=== PATIENT | female | born 1925 | race Caucasian/White ===

== ENCOUNTER 2016-07-18 21:46 | Emergency (ER) | payer MEDICARE ==
[~2016-07-18] VITALS: Ht 160 cm; Wt 60.0 kg
[~2016-07-18 21:46] MED LIST: ASPI-110 PO; DETR4CAP PO; DILT180C PO; DOCU1CAP39 PO; ESCI5TAB PO; FURO20TA PO; LEVO.075 PO; LORA-373 PO; LOVA20TA PO; MELA0.02 PO; METO25TA3 PO; OMEP20TA PO; POTA20TA5 PO; [UNRECOGNIZED DRUG - CODE] PO
[2016-07-18 21:54] VITALS: BP 162/68; PULSE 74; RESP 20; TEMP 97.8; O2SAT 93
[2016-07-18] MEDS ORDERED: MORPHINE SULFATE 4 MG/ML INJ IV PUSH ONE (22:00)
[2016-07-18] MEDS ORDERED: SODIUM CHLORIDE 0.9% FLUSH 5 ML FLUSH IVF PRN (22:00)
[2016-07-18] MEDS ORDERED: ONDANSETRON HCL 4 MG/2 ML VIAL IV PUSH ONE (22:00)
--- NOTE | 2016-07-18 22:07 | PD ---
HPI Chief Complaint: Fall Time Seen by Provider: 22:01 Travel History International Travel<30 days: No Contact w/Intl Traveler<30days: No Traveled to known affect area: No History of Present Illness HPI 89-year-old female brought in by EMS status post fall at a local nursing facility for dementia. Patient states she was in the bathroom brushing her teeth when she felt a loss of balance and she fell backwards. Patient states she did hit her head but denies loss of consciousness. She complains of some neck discomfort, left shoulder pain, and lower back pain. Patient has a history of dementia and hydrocephalus. Patient is somewhat nauseous, but denies headache, dizziness, or vertigo. Patient denies dental injury or throat discomfort. She denies difficulty swallowing. She denies chest pain, or thoracic pain. She denies abdominal pain. She denies lower extremity pain other than in her buttocks and lower back. Right upper extremity is normal. Patient has multiple allergies, please see the list. 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 CATARACT EXTRACT) Genitourinary Surgery: Yes (ATTEMPTED REPAIR URINARY INCONT. 2006) Gynecologic Surgery: Yes (TOTAL ABDOMINAL HYSTERECTOMY) Hysterectomy: Yes Insulin Pump: No Joint Replacement: Yes (RIGHT SHOULDER 2010, RIGHT KNEE 2011) Mastectomy: Yes (RIGHT SIDE) Neurologic Surgery: Yes (VENTRAL-PERITONEAL SHUNT) Pacemaker: No Thoracic Surgery: Yes Other Surgery: Yes (see hx) Social History Alcohol Use: No Tobacco Use: No Substance Use: No Allergies-Medications (Allergen,Severity, Reaction): Coded Allergies: Ambien (Verified Allergy, Severe, HALLUCINATIONS, 07/18/16) Celebrex (Verified Allergy, Severe, 07/18/16) PT STATES IS NOT ALLERGIC -- CAN'T AFFORD Compazine (Verified Allergy, Severe, 07/18/16) Cymbalta (Verified Allergy, Severe, Nausea/Vomiting, 07/18/16) not on allergie list from [facility] Dimetapp (Verified Allergy, Severe, 07/18/16) PT UNSURE IF ALLERGIC Erythromycin (Verified Allergy, Severe, 07/18/16) PT UNSURE IF ALLERGIC Naproxen (Verified Allergy, Severe, ALL NSAIDS UPSET STOMACH, 07/18/16) not on allergie list from [facility] Neurontin (Verified Allergy, Severe, UNSTEADY GAIT, 07/18/16) not on allergie list from [facility] Perphenazine (Verified Allergy, Severe, 07/18/16) not on allergie list from [facility] Prednisone (Verified Allergy, Severe, UPSET STOMACH, 07/18/16) PT DOESN'T REMEMBER IF ALLERGIC Trilafon (Verified Allergy, Severe, NAUSEA & VOMITTING, 07/18/16) EXTRA PYRIMADAL SIDE EFFECTS Vioxx (Verified Allergy, Severe, UPSET STOMACH, 07/18/16) DOESN'T REMEMBER ANY PROBLEMS Percocet (Verified Adverse Reaction, Severe, UPSET STOMACH, 07/18/16) PT DOESN'T REMEMBER REACTION Reported Meds & Prescriptions Reported Meds & Active Scripts Active Potassium Chloride Microencaps 20 Meq Tab 20 Meq PO DAILY 30 Days Furosemide 20 Mg Tab 20 Mg PO BID@,18 30 Days Reported Zofran (Ondansetron HCl) 4 Mg Tab 4 Mg PO Q6HR PRN Tums (Calcium Carbonate (Antacid)) 500 Mg Chew 1,000 Mg CHEW BID PRN Senokot S (Sennosides-Docusate Sodium) 8.6-50 Mg Tab 1 Tab PO DAILY PRN Tylenol (Acetaminophen) 325 Mg Cap 650 Mg PO Q6H PRN Zoloft (Sertraline HCl) 50 Mg Tab 50 Mg PO DAILY Diltiazem HCl ER (Diltiazem HCl Coated Beads) 180 Mg Cap 120 Mg PO DAILY Metoprolol Tartrate 25 Mg Tab 50 Mg PO DAILY Melatonin 3 Mg Tab 3 Mg PO HS Escitalopram (Escitalopram Oxalate) 5 Mg Tab 10 Mg PO DAILY Aspirin 81 (Aspirin) 81 Mg Tabdr 81 Mg PO DAILY Detrol LA (Tolterodine Tartrate) 4 Mg Cap 4 Mg PO HS Lovastatin 20 Mg Tab 20 Mg PO HS Synthroid (Levothyroxine Sodium) 75 Mcg Tab 75 Mcg PO DAILY Review of Systems Except as stated in HPI: all other systems reviewed are Neg General / Constitutional: No: Fever Eyes: No: Visual changes HENT: No: Headaches Cardiovascular: No: Chest Pain or Discomfort Respiratory: No: Shortness of Breath Gastrointestinal: No: Abdominal Pain Genitourinary: No: Dysuria Musculoskeletal: No: Pain Skin: No Rash Neurologic: No: Weakness Psychiatric: No: Depression Endocrine: No: Polydipsia Hematologic/Lymphatic: No: Easy Bruising Physical Exam Narrative GENERAL: Patient is in mild distress. Patient has cervical immobilization in place. She is not on a backboard. SKIN: Warm and dry. Normal color. Somewhat atrophic with moderately poor turgor. HEAD: Atraumatic. Normocephalic. Patient has no point tenderness. Patient has a shunt on the right for her history of hydrocephalus. EYES: Pupils equal and round. No scleral icterus. No injection or drainage. Ocular motions are normal bilaterally. ENT: No nasal bleeding or discharge. Mucous membranes pink and moist. No obvious dental injury. Pharynx is clear. Airway is patent. NECK: Trachea midline. Cervical spine is maintained in immobilization for CT scan. CARDIOVASCULAR: Regular rate and rhythm. No murmurs gallops or rubs appreciated. RESPIRATORY: No accessory muscle use. Clear to auscultation. Breath sounds equal bilaterally. No thoracic wall tenderness with palpation. GASTROINTESTINAL: Abdomen soft, non-tender, nondistended. Hepatic and splenic margins not palpable. MUSCULOSKELETAL: Extremities without clubbing, cyanosis, or edema. No obvious deformities. Patient has pain with palpation generally in the left shoulder without specific point tenderness. There is no obvious deformity or crepitus appreciated. 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 Right upper extremity is normal. Patient complains of pain in the lower lumbar spine and sacrum, without pain with motion of the hips in both flexion and rotation. Patient has normal strength in the lower extremities. Neurovascular exam is normal in all extremities. NEUROLOGICAL: Awake and alert. No obvious cranial nerve deficits. Motor grossly within normal limits. Five out of 5 muscle strength in the arms and legs. Normal speech. PSYCHIATRIC: Appropriate mood and affect; insight and judgment normal. Data Data Last Documented VS Vital Signs Date Time Temp Pulse Resp B/P Pulse Ox O2 Delivery O2 Flow Rate FiO2 07/18/16 22:38 14 94 Nasal Cannula 2 07/18/16 21:54 97.8 74 162/68 Orders Electrocardiogram (07/18/16 21:56) Complete Blood Count With Diff (07/18/16 21:56) Comprehensive Metabolic Panel (07/18/16 21:56) Prothrombin Time / Inr (Pt) (07/18/16 21:56) Act Partial Throm Time (Ptt) (07/18/16 21:56) Pelvis, Ap Only (Routine) (07/18/16 21:56) Iv Access Insert/Monitor (07/18/16 21:56) Oximetry (07/18/16 21:56) Ecg Monitoring (07/18/16 21:56) Sodium Chloride 0.9% Flush (Ns Flush) (07/18/16 22:00) Ct Brain W/O Iv Contrast(Rout) (07/18/16 21:56) Ct Cerv Spine W/O Contrast (07/18/16 21:56) Spine, Lumbar - Ltd (Ap & Lat) (07/18/16 21:56) Shoulder, Limited(2vws) (07/18/16 21:56) Ondansetron Inj (Zofran Inj) (07/18/16 22:00) Morphine Inj (Morphine Inj) (07/18/16 22:00) Labs Laboratory Tests Test 07/18/16 22:05 White Blood Count 10.0 TH/MM3 Red Blood Count 4.35 MIL/MM3 Hemoglobin 13.2 GM/DL Hematocrit 38.9 % Mean Corpuscular Volume 89.5 FL Mean Corpuscular Hemoglobin 30.5 PG Mean Corpuscular Hemoglobin 34.0 % Concent Red Cell Distribution Width 13.5 % Platelet Count 230 TH/MM3 Mean Platelet Volume 9.9 FL Neutrophils (%) (Auto) 61.2 % Lymphocytes (%) (Auto) 26.7 % Monocytes (%) (Auto) 8.4 % Eosinophils (%) (Auto) 2.6 % Basophils (%) (Auto) 1.1 % Neutrophils # (Auto) 6.1 TH/MM3 Lymphocytes # (Auto) 2.7 TH/MM3 Monocytes # (Auto) 0.8 TH/MM3 Eosinophils # (Auto) 0.3 TH/MM3 Basophils # (Auto) 0.1 TH/MM3 CBC Comment DIFF FINAL Differential Comment Prothrombin Time 12.1 SEC Prothromb Time International 1.1 RATIO Ratio Activated Partial 26.0 SEC Thromboplast Time Sodium Level 138 MEQ/L Potassium Level 4.6 MEQ/L Chloride Level 102 MEQ/L Carbon Dioxide Level 27.7 MEQ/L Anion Gap 8 MEQ/L Blood Urea Nitrogen 18 MG/DL Creatinine 0.96 MG/DL Estimat Glomerular Filtration 55 ML/MIN Rate Random Glucose 99 MG/DL Calcium Level 9.3 MG/DL Total Bilirubin 0.3 MG/DL Aspartate Amino Transf 22 U/L (AST/SGOT) Alanine Aminotransferase 24 U/L (ALT/SGPT) Alkaline Phosphatase 75 U/L Total Protein 7.8 GM/DL Albumin 3.6 GM/DL [facility] Medical Decision Making Medical Screen Exam Complete: Yes Emergency Medical Condition: Yes Medical Record Reviewed: Yes Differential Diagnosis Fall due to loss of balance. Head contusion. Cervical neck strain. Possible fracture. Possible intracranial bleed. Left shoulder contusion. Left shoulder fracture. Lumbar strain. Sacral contusion possible fracture. Narrative Course Patient is medically stable at time of exam. IV is in place from EMS. Patient is given 4 mg Zofran [address] of the head and neck is ordered. X-rays of the left shoulder are ordered. X -rays of the pelvis and lumbar spine are ordered. X-rays of the left shoulder are within normal limits per radiologist. X-ray of the lumbar spine shows no acute process per radiologist. X-ray of the pelvis is unremarkable per radiologist. CT of the head is unremarkable for acute process per radiologist. CT of the cervical spine is unremarkable for acute process per radiologist. Cervical collar is removed by myself. Labs are all within normal limits. Patient is discussed with Dr. Nagel. Patient is felt stable to return to her nursing facility. Patient Tylenol for her aches and pains. Patient is to be monitored for any worsening symptoms or return the emergency department as symptoms warrant. Diagnosis Primary Impression: Unwitnessed fall Additional Impressions: Contusion of left shoulder, initial encounter Sacral contusion Qualified Code: S30.0XXA - Sacral contusion, initial encounter Sprain of cervical neck Qualified Code: S13.9XXA - Sprain of cervical neck, initial encounter Referrals: Primary Care Physician Patient Instructions: Fall Prevention for Older Adults (ED), General Instructions Additional Instructions: Patient is felt stable to return to her nursing facility. Patient Tylenol for her aches and pains. Patient is to be monitored for any worsening symptoms or return the emergency department as symptoms warrant. Med/Other Pt SpecificInfo: No Change to Meds Disposition: 01 DISCHARGE HOME Condition: Stable Octavio Trinh Jul 18, 2016 22:07
[2016-07-18 22:17] LABS: AUTOMATED NEUTROPHIL # 6.1 TH/MM3 (1.8-7.7); BASOPHIL # 0.1 TH/MM3 (0-0.2); BASOPHIL % 1.1 % (0.0-2.0); EOSINOPHIL # 0.3 TH/MM3 (0-0.4); EOSINOPHIL % 2.6 % (0.0-4.0); HEMATOCRIT 38.9 % (35.0-46.0); HEMO FLAGS DIFF FINAL; LYMPH % 26.7 % (9.0-44.0); LYMPHOCYTE # 2.7 TH/MM3 (1.0-4.8); MEAN CELL VOLUME 89.5 FL (80.0-100.0); MEAN CORPUSCULAR HEMOGLOBIN 30.5 PG (27.0-34.0); MONO % 8.4 % (0.0-8.0); NEUT % 61.2 % (16.0-70.0); PLATELET COUNT 230 TH/MM3 (150-450); RED BLOOD COUNT 4.35 MIL/MM3 (4.00-5.30); RED CELL DISTRIBUTION WIDTH 13.5 % (11.6-17.2)
--- NOTE | 2016-07-18 22:25 | RADRPT ---
EXAM DATE/TIME: 07/18/2016 22:09 [facility] COMPARISON: No previous studies available for comparison. INDICATIONS : Evaluate pelvis for trauma, fell MEDICAL HISTORY : None. SURGICAL HISTORY : None. ENCOUNTER: Initial ACUITY: 1 day PAIN SCORE: 0/10 LOCATION: Pelvis FINDINGS: A single frontal view of the pelvis demonstrates no evidence of fracture. The bony pelvic ring is in tact. Bony mineralization is normal. The soft tissues are intact. CONCLUSION: Intact pelvis. Jeffery Irvin MD on July 18, 2016 at 22:23 Board Certified Radiologist. This report was verified electronically.
--- NOTE | 2016-07-18 22:27 | RADRPT ---
EXAM DATE/TIME: 07/18/2016 22:10 [facility] COMPARISON: CT ABDOMEN & PELVIS W/O CONTRAST, July 14, 2014, 20:35. INDICATIONS : Back pain, fell MEDICAL HISTORY : None. SURGICAL HISTORY : None. ENCOUNTER: Initial ACUITY: 1 day PAIN SCORE: 6/10 LOCATION: Lumbar spine FINDINGS: Mild concavity of L2 vertebral body appears similar to the prior CT. A few millimeters of degenerativ e anterolisthesis at L3/L4 and L4/L5 is also unchanged. No fracture or acute appearing malalignment. CONCLUSION: Intact lumbar spine. No acute subluxation. Jeffery Irvin MD on July 18, 2016 at 22:24 Board Certified Radiologist. This report was verified electronically.
[2016-07-18] MEDS ORDERED: ACET1CAP18 PO (22:28)
[2016-07-18] MEDS ORDERED: TUMS500C CHEW (22:28)
[2016-07-18] MEDS ORDERED: SENN1TAB17 PO (22:28)
[2016-07-18] MEDS ORDERED: ZOFR4TAB PO (22:28)
[2016-07-18] MEDS ORDERED: ZOLO50TA PO (22:28)
--- NOTE | 2016-07-18 22:28 | RADRPT ---
EXAM DATE/TIME: 07/18/2016 22:10 [facility] COMPARISON: No previous studies available for comparison. INDICATIONS : Left shoulder pain, fell MEDICAL HISTORY : None. SURGICAL HISTORY : None. ENCOUNTER: Initial ACUITY: 1 day PAIN SCORE: 3/10 LOCATION: Left Shoulder FINDINGS: Two view examination of the left shoulder demonstrates no evidence of fracture or dislocation. The g lenohumeral and acromioclavicular joints are maintained. Bony mineralization is normal. 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 CONCLUSION: Intact left shoulder. Jeffery Irvin MD on July 18, 2016 at 22:26 Board Certified Radiologist. This report was verified electronically.
[2016-07-18 22:31] LABS: INTERNATIONAL NORMALIZED RATIO 1.1 RATIO; PROTHROMBIN TIME - PATIENT 12.1 SEC (9.8-11.6)
--- NOTE | 2016-07-18 22:33 | RADRPT ---
EXAM DATE/TIME: 07/18/2016 22:18 [facility] COMPARISON: CT BRAIN W/O CONTRAST, November 17, 2014, 2:50. INDICATIONS : Trauma. Fall. RADIATION DOSE: 58.18 CTDIvol (mGy) MEDICAL HISTORY : Cardiovascular disease. Hypertension. Hydrocephalus SURGICAL HISTORY : Appendectomy. Cholecystectomy.Hysterectomy. ENCOUNTER: Initial ACUITY: 1 day PAIN SCALE: Non-responsive LOCATION: cranial TECHNIQUE: Multiple contiguous axial images were obtained of the head. Using automated exposure control and adj ustment of the mA and/or kV according to patient size, radiation dose was kept as low as reasonably a chievable to obtain optimal diagnostic quality images. FINDINGS: CEREBRUM: Mild ventriculomegaly unchanged. Patient remains shunted.. No evidence of midline shift, mass lesion , hemorrhage or acute infarction. No extra-axial fluid collections are seen. Chronic white matter lo w attenuation again noted. POSTERIOR FOSSA: The cerebellum and brainstem are intact. The 4th ventricle is midline. The cerebellopontine angle i s unremarkable. EXTRACRANIAL: The visualized portion of the orbits is intact. SKULL: The calvaria is intact. No evidence of skull fracture. CONCLUSION: No bleed or other acute intracranial abnormality. Chronic white matter changes and mild ventriculomeg dawit unchanged. Jeffery Irvin MD on July 18, 2016 at 22:30 Board Certified Radiologist. This report was verified electronically.
[2016-07-18 22:38] VITALS: RESP 14; O2SAT 94
--- NOTE | 2016-07-18 22:38 | RADRPT ---
EXAM DATE/TIME: 07/18/2016 22:18 [facility] COMPARISON: CT BRAIN W/O CONTRAST, November 17, 2014, 2:50. CT CERVICAL SPINE W/O CONTRAST, November 17, 2014, 2:50. INDICATIONS : Trauma. Fall. RADIATION DOSE: 16.69 CTDIvol (mGy) MEDICAL HISTORY : Cardiovascular disease. Hypertension. Hydrocephalus SURGICAL HISTORY : Appendectomy. Cholecystectomy.Hysterectomy.[employer] Shunt ENCOUNTER: Initial ACUITY: 1 day PAIN SCALE: Non-responsive LOCATION: neck TECHNIQUE: Volumetric scanning of the cervical spine was performed. Multiplanar reconstructions in the sagittal, coronal and oblique axial planes were performed. Using automated exposure control and adjustment o f the mA and/or kV according to patient size, radiation dose was kept as low as reasonably achievable to obtain optimal diagnostic quality images. FINDINGS: There are several millimeters of degenerative anterolisthesis at C4/C5, unchanged. No fracture or acu te appearing malalignment. Vertebral bodies have normal height. Severe disc space narrowing with uncovertebral and facet osteoarthritis again seen at C5/C6 and C6 on C7. Other disc heights are within normal limits but there is moderate facet osteoarthritis essential ly throughout. CONCLUSION: No fracture or subluxation of the cervical spine. Multilevel degenerative changes similar to the prio r CT. Jeffery Irvin MD on July 18, 2016 at 22:34 Board Certified Radiologist. This report was verified electronically.
[2016-07-18 22:41] LABS: ANION GAP 8 MEQ/L (5-15); BICARBONATE 27.7 MEQ/L (21.0-32.0); BLOOD UREA NITROGEN 18 MG/DL (7-18); CHLORIDE 102 MEQ/L (98-107); GLOMERULAR FILTRATION RATE 55 ML/MIN (>89); POTASSIUM 4.6 MEQ/L (3.5-5.1); SODIUM (NA) 138 MEQ/L (136-145)
[2016-07-18 22:45] LABS: ALKALINE PHOSPHATASE 75 U/L (45-117); ALT (GPT) 24 U/L (10-53); AST (GOT) 22 U/L (15-37); TOTAL BILIRUBIN ADULT 0.3 MG/DL (0.2-1.0)
[2016-07-19] VITALS: BP 113/54; PULSE 58; RESP 16; O2SAT 93
[2016-07-19 02:00] VITALS: BP 126/59; PULSE 60; RESP 14; O2SAT 94
[2016-07-19 06:39] VITALS: BP 124/58; PULSE 65; RESP 20; O2SAT 96
--- NOTE | 2016-07-19 10:32 | EKG ---
Date Performed: 07/18/2016 Time Performed: 22:36:27 PTAGE: 89 years EKG: Sinus rhythm WITH FIRST DEGREE AV BLOCK WITH OCCASIONAL VENTRICULAR PREMATURE COMPLEXES LOW QRS VOLTAGE IN PRECOR DIAL LEADS SEPTAL MYOCARDIAL INFARCTION NONSPECIFIC LATERAL ST/T CHANGES ABNORMAL ECG PREVIOUS TRACING : 03/11/2016 13.38 Compared to previous tracing, PVCs are now present. DOCTOR: Chito Hook Interpretating Date/Time 07/19/2016 10:30:28
== END 2016-07-19 08:00 | disposition home or self-care (01) ==
LOC: NEPE 21:46 → NEPA 07-19 08:00
DX: S30.0XXA Contusion of lower back and pelvis, initial encounter (principal); S40.012A Contusion of left shoulder, initial encounter; S13.4XXA Sprain of ligaments of cervical spine, initial encounter; F03.90 Unspecified dementia, unspecified severity, without behavioral disturbance, psychotic disturbance, mood disturbance, and anxiety; I10 Essential (primary) hypertension; W19.XXXA Unspecified fall, initial encounter; Y93.E8 Activity, other personal hygiene; Y92.121 Bathroom in nursing home as the place of occurrence of the external cause
CPT/HCPCS: 70450; 72100; 72125; 72170; 73030; 80053; 85025; 85610; 85730; 93005; 96374; 96375; 99285; J2270; J2405

== ENCOUNTER 2016-08-01 08:32 | Observation (INO) | payer MEDICARE ==
[~2016-08-01] VITALS: Ht 165.1 cm; Wt 64.5 kg
[2016-08-01] VITALS (7 sets, daily range): BP systolic 134–155; BP diastolic 60–91; PULSE 73–85; RESP 16–20; TEMP 98–99.6; O2SAT 91–98
[~2016-08-01 08:32] MED LIST changes: +ACET1CAP18 PO; -DOCU1CAP39 PO; -LORA-373 PO; -OMEP20TA PO; +SENN1TAB17 PO; +TUMS500C CHEW; +ZOFR4TAB PO; +ZOLO50TA PO; -[UNRECOGNIZED DRUG - CODE] PO
[2016-08-01] MEDS ORDERED: SODIUM CHLORIDE 0.9% FLUSH 5 ML FLUSH IVF PRN (08:45)
[2016-08-01] MEDS ORDERED: DEXT 5%-NACL 0.9% 500 ML INJ 500 ML IV ONE (08:45)
--- NOTE | 2016-08-01 09:17 | PD ---
HPI Chief Complaint: General Weakness Time Seen by Provider: 08:41 Travel History International Travel<30 days: No Contact w/Intl Traveler<30days: No Traveled to known affect area: No History of Present Illness HPI 89-year-old female patient currently living in an assisted care facility, with multiple medical issues, presents to the ER today brought in by EMS because she wheeled herself down to the facility office and had initially appeared to have some slurring of the speech and facility thought that maybe she had a left- sided weakness, and they called EMS. When EMS arrived, they state that they did not see any focal neurological deficits. They state that the patient did appear more tired and had complained of urinary symptoms. In the ER, the patient appears disoriented, lethargic, and is not answering many questions. Modifying Factors: None Associated Signs & Symptoms: Altered mental status, general weakness, slurred speech Risk Factors: Elderly PFSH Past Medical History Arthritis: Yes Blood Disorders: No Anxiety: Yes Heart Rhythm Problems: No Cancer: Yes (R BREAST CA, BASAL CELL HEAD AND FOREHEAD) Cardiac Catheterization: No Cardiovascular Problems: Yes (OPEN HEART 1999 @[facility] MITRAL VALVE REPLACEMENT ) High Cholesterol: No Chemotherapy: No Congestive Heart Failure: No Diabetes: No Diminished Hearing: No Endocrine: Yes Genitourinary: Yes (INCONTINENCE) Hepatitis: No Hiatal Hernia: No Hypertension: Yes Immune Disorder: No Implanted Vascular Access Dvce: Yes Musculoskeletal: Yes (ARTHRITIS) 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 CATARACT EXTRACT) Genitourinary Surgery: Yes (ATTEMPTED REPAIR URINARY INCONT. 2006) Gynecologic Surgery: Yes (TOTAL ABDOMINAL HYSTERECTOMY) Hysterectomy: Yes Insulin Pump: No Joint Replacement: Yes (RIGHT SHOULDER 2010, RIGHT KNEE 2011) Mastectomy: Yes (RIGHT SIDE) Neurologic Surgery: Yes (VENTRAL-PERITONEAL SHUNT) Pacemaker: No Thoracic Surgery: Yes Other Surgery: Yes (see hx) Social History Alcohol Use: No Tobacco Use: No Substance Use: No Allergies-Medications (Allergen,Severity, Reaction): Coded Allergies: Ambien (Verified Allergy, Severe, HALLUCINATIONS, 07/18/16) Celebrex (Verified Allergy, Severe, 07/18/16) PT STATES IS NOT ALLERGIC -- CAN'T AFFORD Compazine (Verified Allergy, Severe, 07/18/16) Cymbalta (Verified Allergy, Severe, Nausea/Vomiting, 07/18/16) not on allergie list from [facility] Dimetapp (Verified Allergy, Severe, 07/18/16) PT UNSURE IF ALLERGIC Erythromycin (Verified Allergy, Severe, 07/18/16) PT UNSURE IF ALLERGIC Naproxen (Verified Allergy, Severe, ALL NSAIDS UPSET STOMACH, 07/18/16) not on allergie list from [facility] Neurontin (Verified Allergy, Severe, UNSTEADY GAIT, 07/18/16) not on allergie list from [facility] Perphenazine (Verified Allergy, Severe, 07/18/16) not on allergie list from [facility] Prednisone (Verified Allergy, Severe, UPSET STOMACH, 07/18/16) PT DOESN'T REMEMBER IF ALLERGIC Trilafon (Verified Allergy, Severe, NAUSEA & VOMITTING, 07/18/16) EXTRA PYRIMADAL SIDE EFFECTS Vioxx (Verified Allergy, Severe, UPSET STOMACH, 07/18/16) DOESN'T REMEMBER ANY PROBLEMS Percocet (Verified Adverse Reaction, Severe, UPSET STOMACH, 07/18/16) PT DOESN'T REMEMBER REACTION Reported Meds & Prescriptions Reported Meds & Active Scripts Active Potassium Chloride Microencaps 20 Meq Tab 20 Meq PO DAILY 30 Days Furosemide 20 Mg Tab 20 Mg PO BID@,18 30 Days Reported Zofran (Ondansetron HCl) 4 Mg Tab 4 Mg PO Q6HR PRN Tums (Calcium Carbonate (Antacid)) 500 Mg Chew 1,000 Mg CHEW BID PRN Senokot S (Sennosides-Docusate Sodium) 8.6-50 Mg Tab 1 Tab PO DAILY PRN Tylenol (Acetaminophen) 325 Mg Cap 650 Mg PO Q6H PRN Zoloft (Sertraline HCl) 50 Mg Tab 50 Mg PO DAILY Diltiazem HCl ER (Diltiazem HCl Coated Beads) 180 Mg Cap 120 Mg PO DAILY Metoprolol Tartrate 25 Mg Tab 50 Mg PO DAILY Melatonin 3 Mg Tab 3 Mg PO HS Escitalopram (Escitalopram Oxalate) 5 Mg Tab 10 Mg PO DAILY Aspirin 81 (Aspirin) 81 Mg Tabdr 81 Mg PO DAILY Detrol LA (Tolterodine Tartrate) 4 Mg Cap 4 Mg PO HS Lovastatin 20 Mg Tab 20 Mg PO HS Synthroid (Levothyroxine Sodium) 75 Mcg Tab 75 Mcg PO DAILY Review of Systems ROS Limitations: Altered Mental Status Physical Exam Narrative GENERAL: Well-nourished, well-developed elderly white female patient who is lethargic, not answering questions, awake, follows some commands and not others. SKIN: Warm and dry. HEAD: Atraumatic. Normocephalic. EYES: Pupils equal and round. No scleral icterus. No injection or drainage. Pupils are equal, round, small, poorly reactive to light bilaterally. ENT: No nasal bleeding or discharge. Mucous membranes pink and moist. NECK: Trachea midline. No JVD. CARDIOVASCULAR: Regular rate and rhythm. No murmur appreciated. RESPIRATORY: No accessory muscle use. Clear to auscultation. Breath sounds equal bilaterally. GASTROINTESTINAL: Abdomen soft, mild suprapubic tenderness without guarding or rebound, nondistended. Hepatic and splenic margins not palpable. MUSCULOSKELETAL: No obvious deformities. No clubbing. No cyanosis. No edema. NEUROLOGICAL: Awake and lethargic. Not following commands, slurred speech. PSYCHIATRIC: Flat affect; this oriented. Data Data Last Documented VS Vital Signs Date Time Temp Pulse Resp B/P Pulse Ox O2 Delivery O2 Flow Rate FiO2 08/01/16 09:19 98 Room Air 08/01/16 08:53 98.0 73 19 134/60 Orders Electrocardiogram (08/01/16 08:41) Ammonia (08/01/16 08:41) Complete Blood Count With Diff (08/01/16 08:41) Comprehensive Metabolic Panel (08/01/16 08:41) Prothrombin Time / Inr (Pt) (08/01/16 08:41) Act Partial Throm Time (Ptt) (08/01/16 08:41) Troponin I (08/01/16 08:41) Thyroid Stimulating Hormone (08/01/16 08:41) Lactic Acid Sepsis Protocol (08/01/16 08:41) Urinalysis - C+S If Indicated (08/01/16 08:41) Blood Culture (08/01/16 08:41) Chest, Single Ap (08/01/16 08:41) Ct Brain W/O Iv Contrast(Rout) (08/01/16 08:41) Blood Glucose (08/01/16 08:41) Ecg Monitoring (08/01/16 08:41) Iv Access Insert/Monitor (08/01/16 08:41) Cath For Specimen (08/01/16 08:41) Oximetry (08/01/16 08:41) Sodium Chloride 0.9% Flush (Ns Flush) (08/01/16 08:45) Drug Screen, Random Urine (08/01/16 08:41) Alcohol (Ethanol) (08/01/16 08:41) Salicylates (Aspirin) (08/01/16 08:41) Dext 5%-Nacl 0.9% 500 Ml Inj (D5w-Ns 500 (08/01/16 08:45) Urine Culture (08/01/16 09:10) Cefepime Inj (Maxipime Inj) (08/01/16 09:57) Sodium Chlorid 0.9% 500 Ml Inj (Ns 500 M (08/01/16 10:15) Electrocardiogram (08/01/16 11:24) Labs Laboratory Tests Test 08/01/16 09:10 White Blood Count 13.0 TH/MM3 Red Blood Count 4.76 MIL/MM3 Hemoglobin 14.2 GM/DL Hematocrit 42.4 % Mean Corpuscular Volume 89.1 FL Mean Corpuscular Hemoglobin 29.8 PG Mean Corpuscular Hemoglobin 33.5 % Concent Red Cell Distribution Width 13.1 % Platelet Count 312 TH/MM3 Mean Platelet Volume 9.8 FL Neutrophils (%) (Auto) 75.3 % Lymphocytes (%) (Auto) 14.4 % Monocytes (%) (Auto) 9.1 % Eosinophils (%) (Auto) 0.8 % Basophils (%) (Auto) 0.4 % Neutrophils # (Auto) 9.8 TH/MM3 Lymphocytes # (Auto) 1.9 TH/MM3 Monocytes # (Auto) 1.2 TH/MM3 Eosinophils # (Auto) 0.1 TH/MM3 Basophils # (Auto) 0.1 TH/MM3 CBC Comment DIFF FINAL Differential Comment Prothrombin Time 12.1 SEC Prothromb Time International 1.1 RATIO Ratio Activated Partial 28.5 SEC Thromboplast Time Urine Color YELLOW Urine Turbidity CLOUDY Urine pH 7.5 Urine Specific [place] 1.023 Urine Protein 30 mg/dL Urine Glucose (UA) NEG mg/dL Urine Ketones 80 mg/dL Urine Occult Blood NEG Urine Nitrite NEG Urine Bilirubin NEG Urine Urobilinogen 4.0 MG/DL Urine Leukocyte Esterase SMALL Urine RBC 1 /hpf Urine WBC 14 /hpf Urine Squamous Epithelial 1 /hpf Cells Urine Amorphous Sediment FEW Urine Bacteria MOD /hpf Urine Mucus FEW /lpf Microscopic Urinalysis Comment CATH-CULTURE IND Sodium Level 136 MEQ/L Potassium Level 3.8 MEQ/L Chloride Level 98 MEQ/L Carbon Dioxide Level 25.5 MEQ/L Anion Gap 13 MEQ/L Blood Urea Nitrogen 18 MG/DL Creatinine 0.88 MG/DL Estimat Glomerular Filtration 61 ML/MIN Rate Random Glucose 73 MG/DL Lactic Acid Level 1.4 mmol/L Calcium Level 9.4 MG/DL Total Bilirubin 0.7 MG/DL Aspartate Amino Transf 22 U/L (AST/SGOT) Alanine Aminotransferase 24 U/L (ALT/SGPT) Alkaline Phosphatase 113 U/L Ammonia LESS THAN 10 MCMOL/L Troponin I LESS THAN 0.02 NG/ML Total Protein 8.0 GM/DL Albumin 3.3 GM/DL Thyroid Stimulating Hormone 1.220 uIU/ML 3rd Gen Salicylates Level LESS THAN 1.7 MG/DL Urine Opiates Screen NEG Urine Barbiturates Screen NEG Urine Amphetamines Screen NEG Urine Benzodiazepines Screen NEG Urine Cocaine Screen NEG Urine Cannabinoids Screen NEG Ethyl Alcohol Level LESS THAN 3 MG/DL MDM Medical Decision Making Medical Screen Exam Complete: Yes Emergency Medical Condition: Yes Medical Record Reviewed: Yes Interpretation(s) Laboratory Tests Test 08/01/16 09:10 White Blood Count 13.0 TH/MM3 (4.0-11.0) Neutrophils (%) (Auto) 75.3 % (16.0-70.0) Monocytes (%) (Auto) 9.1 % (0.0-8.0) Neutrophils # (Auto) 9.8 TH/MM3 (1.8-7.7) Monocytes # (Auto) 1.2 TH/MM3 (0-0.9) Prothrombin Time 12.1 SEC (9.8-11.6) Urine Turbidity CLOUDY (CLEAR) Urine Protein 30 mg/dL (NEG-TRACE) Urine Ketones 80 mg/dL (NEG) Urine Urobilinogen 4.0 MG/DL (LESS THAN 2.0) Urine Leukocyte Esterase SMALL (NEG) Urine WBC 14 /hpf (0-5) Urine Bacteria MOD /hpf (NONE) Urine Mucus FEW /lpf (OCC) Estimat Glomerular Filtration 61 ML/MIN (>89) Rate Random Glucose 73 MG/DL (74-106) Ammonia LESS THAN 10 MCMOL/L (11-32) Troponin I LESS THAN 0.02 NG/ML (0.02-0.05) Albumin 3.3 GM/DL (3.4-5.0) Salicylates Level LESS THAN 1.7 MG/DL (2.8-20.0) Last 24 hours Impressions Chest X-Ray 08/01/16 0841 Signed Impressions: Service Date/Time: Monday, August 01, 2016 08:57 - CONCLUSION: Minimal parenchymal opacity at the lateral left base. Jeffery Ibarra MD Differential Diagnosis Altered mental statusTIA/CVA versus sepsis versus metabolic issues versus dehydration Narrative Course Lab work shows significant leukocytosis and UTI which I still suspect may be causing patient's disorientation. I do not see focal symptoms but patient is disoriented and it is difficult to do a complete neuro exam on her. Her CAT scan shows that she has a ASSOCIATE RELATIONS SPECIALIST shunt. IV access are initiated after cultures are drawn and IV fluids is given in the ER. My plan would be to admit the patient for further evaluation treatment. The case was discussed with Dr. Ratliff for admission. Sepsis Criteria SIRS Criteria (2 or more): WBC > 04482, < 4000 or > 10% bands Sepsis Criteria (SIRS+source): Infect source susp/known Diagnosis Primary Impression: Altered mental state Additional Impression: UTI (urinary tract infection) Admitting Information Admitting Physician Requests: Admit Deann Olea MD Aug 01, 2016 09:17
[2016-08-01 09:34] LABS: AUTOMATED NEUTROPHIL # 9.8 TH/MM3 (1.8-7.7); BASOPHIL # 0.1 TH/MM3 (0-0.2); BASOPHIL % 0.4 % (0.0-2.0); EOSINOPHIL # 0.1 TH/MM3 (0-0.4); EOSINOPHIL % 0.8 % (0.0-4.0); HEMATOCRIT 42.4 % (35.0-46.0); HEMO FLAGS DIFF FINAL; LYMPH % 14.4 % (9.0-44.0); LYMPHOCYTE # 1.9 TH/MM3 (1.0-4.8); MEAN CELL VOLUME 89.1 FL (80.0-100.0); MEAN CORPUSCULAR HEMOGLOBIN 29.8 PG (27.0-34.0); MEAN CORPUSCULAR HGB CONC 33.5 % (32.0-36.0); MONO % 9.1 % (0.0-8.0); NEUT % 75.3 % (16.0-70.0); PLATELET COUNT 312 TH/MM3 (150-450); RED BLOOD COUNT 4.76 MIL/MM3 (4.00-5.30); RED CELL DISTRIBUTION WIDTH 13.1 % (11.6-17.2)
--- NOTE | 2016-08-01 09:39 | RADRPT ---
EXAM DATE/TIME: 08/01/2016 08:57 [facility] COMPARISON: CHEST PA & LAT, March 12, 2016, 8:20. INDICATIONS : Syncope, brought in by evac from a long-term with no knowledge of history MEDICAL HISTORY : None. SURGICAL HISTORY : cabg ENCOUNTER: Initial ACUITY: 1 day PAIN SCORE: Non-responsive. LOCATION: Bilateral chest FINDINGS: Minimal parenchymal opacity at the lateral left lung base. Right lung is focally clear. No effusion s uspected. Cardiomediastinal contours are stable and satisfactory. Prosthetic aortic valve is noted. S ternotomy wires are present. There's been previous right shoulder arthroplasty. CONCLUSION: Minimal parenchymal opacity at the lateral left base. Jeffery Ibarra MD on August 01, 2016 at 9:23 Board Certified Radiologist. This report was verified electronically.
[2016-08-01 09:45] LABS: APTT (PATIENT) 28.5 SEC (24.3-30.1); INTERNATIONAL NORMALIZED RATIO 1.1 RATIO; PROTHROMBIN TIME - PATIENT 12.1 SEC (9.8-11.6)
[2016-08-01 09:46] LABS: BACTERIA, URINE MOD /hpf; BLOOD, URINE NEG (NEG); COMMENT (UR) CATH-CULTURE IND; CULTURE IF INDICATED CATH CULTURE IND; GLUCOSE,URINE NEG (NEG); KETONE, URINE 80 mg/dL (NEG); MUCUS URINE FEW /lpf (OCC); NITRITE,URINE NEG (NEG); PH, URINE 7.5 (5.0-8.5); SQUAMOUS EPITHELIAL CELL URINE 1 /hpf (0-5); URINE COLOR YELLOW (YELLW/STRAW)
[2016-08-01 09:48] LABS: ANION GAP 13 MEQ/L (5-15); AST (GOT) 22 U/L (15-37); BICARBONATE 25.5 MEQ/L (21.0-32.0); BLOOD UREA NITROGEN 18 MG/DL (7-18); CHLORIDE 98 MEQ/L (98-107); GLOMERULAR FILTRATION RATE 61 ML/MIN (>89); POTASSIUM 3.8 MEQ/L (3.5-5.1); SODIUM (NA) 136 MEQ/L (136-145)
[2016-08-01] MEDS ORDERED: CEFEPIME INJ 2,000 MG in SODIUM CHLORIDE 0.9% INJ 100 ML IV STA (09:57)
[2016-08-01 09:59] LABS: ALKALINE PHOSPHATASE 113 U/L (45-117); ALT (GPT) 24 U/L (10-53); TOTAL BILIRUBIN ADULT 0.7 MG/DL (0.2-1.0)
[2016-08-01 10:02] LABS: AMPHETAMINE, URINE NEG (NEG); BARBITURATES, URINE NEG (NEG); COCAINE, URINE NEG (NEG)
[2016-08-01] MEDS ORDERED: SODIUM CHLORID 0.9% 500 ML INJ 500 ML IV ONE (10:15)
--- NOTE | 2016-08-01 12:23 | RADRPT ---
EXAM DATE/TIME: 08/01/2016 10:12 [facility] COMPARISON: CT BRAIN W/O CONTRAST, July 18, 2016, 22:18. INDICATIONS: Altered mental status. RADIATION DOSE: 41.56 CTDIvol (mGy) MEDICAL HISTORY: Carcinoma, breast. Hydrocephalus SURGICAL HISTORY: Hysterectomy. Shunt placement ENCOUNTER: Initial ACUITY: 1 day PAIN SCALE: Non-responsive LOCATION: Bilateral head TECHNIQUE: Multiple contiguous axial images were obtained of the head. Using automated exposure control and adj ustment of the mA and/or kV according to patient size, radiation dose was kept as low as reasonably a chievable to obtain optimal diagnostic quality images. FINDINGS: Ventriculomegaly is again noted at unchanged compared to the previous examination in July 2016. A v entriculostomy shunt is stable in position with its tip in the left lateral ventricle. Chronic small vessel ischemic changes are noted within the periventricular and subcortical white matter bilaterall y (right slightly worse than left) but unchanged. There is no acute hemorrhage, midline shift or ext raaxial fluid collections. CONCLUSION: 1. Stable ventriculomegaly. 2. Stable chronic periventricular and subcortical white matter small vessel ischemic changes (right slightly worse than left). 3. No acute infarct, acute hemorrhage, midline shift or extraaxial fluid collections. Chadwick Zhong MD on August 01, 2016 at 10:57 Board Certified Radiologist. This report was verified electronically.
[2016-08-01] MEDS ORDERED: cefTRIAXone INJ 1,000 MG in SODIUM CHLORIDE 0.9% INJ 100 ML IV SCH (13:45)
[2016-08-01] MEDS ORDERED: SENN8.6C PO (13:47)
[2016-08-01] MEDS ORDERED: SACC1CAP3 PO (13:47)
[2016-08-01] MEDS ORDERED: ULTR50TA5 PO (13:47)
--- NOTE | 2016-08-01 14:20 | EKG ---
Date Performed: 08/01/2016 Time Performed: 08:56:21 PTAGE: 89 years EKG: SUPRAVENTRICULAR RHYTHM NONSPECIFIC ST & T-WAVE ABNORMALITY BORDERLINE ECG NO PREVIOUS TRACING Compared to prior tracing no significant change DOCTOR: Adam Villarreal Interpretating Date/Time 08/03/2016 06:59:45
--- NOTE | 2016-08-01 14:27 | HHI.HP ---
HPI [facility] Primary Care Physician Daniela Guzman MD Admission Diagnosis altered mental status/UTI/sepsis Chief Complaint: AMS Travel History International Travel<30 Days: No Contact w/Intl Traveler <30 Da: No Traveled to Known Affected Are: No History of Present Illness Ms. 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 Per the ED notes, the pt wheeled herself down to the office at the [facility] and had initially appeared to have some slurring of the speech and facility thought that maybe she had a left- sided weakness, and they called EMS. When EMS arrived, they stated that they did not have any obvious focal neurological deficits. They state that the patient did appear more tired and had complained of urinary symptoms. In the ED , the patient is lying on the stretcher with eyes closed and refused to follow commands. She would occasionally answer some yes or no questions. She states that she has some dysuria for a few days. No reported nausea/vomiting, chest pain, SOB, palpitations. Her workup in the ED revealed an elevated WBC count with left shift and an abnormal UA, urine culture is pending. Head CT noted stable ventriculomegaly, stable chronic periventricular and subcortical white matter small vessel ischemic changes (right slightly worse than left), but no acute infarct, acute hemorrhage, midline shift or extraaxial fluid collections. Blood cultures were drawn in the ED. Pt was given one dose of Cefepime in the ED. 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 meniscal tears Right shoulder surgery Right mastectomy VPS placement Hx loop diverting colostomy with reversal. Cataract surgery. Lap josiah. Mitral valve replacement with porcine valve in 2001 [facility] Reported Medications -Probiotic (Saccharomyces Boulardii) 250 Mg PO BID -Ultram 50 Mg PO Q6H PRN -Senna 8.6 Mg PO HS -Zofran 4 Mg PO Q6HR PRN -Tums 1,000 Mg CHEW BID PRN -Tylenol 650 Mg PO Q6H PRN -Zoloft 50 Mg PO DAILY -Diltiazem HCl ER 120 Mg PO DAILY -Metoprolol Tartrate 50 Mg PO DAILY -Escitalopram 10 Mg PO DAILY -Aspirin 81 Mg PO DAILY -Synthroid 75 Mcg PO DAILY Allergies: Coded Allergies: Ambien (Verified Allergy, Severe, HALLUCINATIONS, 08/01/16) Celebrex (Verified Allergy, Severe, 08/01/16) PT STATES IS NOT ALLERGIC -- CAN'T AFFORD Compazine (Verified Allergy, Severe, 08/01/16) Cymbalta (Verified Allergy, Severe, Nausea/Vomiting, 08/01/16) not on allergie list from [facility] Dimetapp (Verified Allergy, Severe, 08/01/16) PT UNSURE IF ALLERGIC Erythromycin (Verified Allergy, Severe, 08/01/16) PT UNSURE IF ALLERGIC Naproxen (Verified Allergy, Severe, ALL NSAIDS UPSET STOMACH, 08/01/16) not on allergie list from [facility] Neurontin (Verified Allergy, Severe, UNSTEADY GAIT, 08/01/16) not on allergie list from [facility] Perphenazine (Verified Allergy, Severe, 08/01/16) not on allergie list from [facility] Prednisone (Verified Allergy, Severe, UPSET STOMACH, 08/01/16) PT DOESN'T REMEMBER IF ALLERGIC Trilafon (Verified Allergy, Severe, NAUSEA & VOMITTING, 08/01/16) EXTRA PYRIMADAL SIDE EFFECTS Vioxx (Verified Allergy, Severe, UPSET STOMACH, 08/01/16) DOESN'T REMEMBER ANY PROBLEMS Percocet (Verified Adverse Reaction, Severe, UPSET STOMACH, 08/01/16) PT DOESN'T REMEMBER REACTION Family History Mother with hx of Parkinson disease/dementia Brother with hx of prostate cancer Father with hx of psoriasis Social History Denies any alcohol, tobacco or illicit drug use Pt resides at [facility] Physical Exam Vital Signs Vital Signs Date Time Temp Pulse Resp B/P Pulse Ox O2 Delivery O2 Flow Rate FiO2 08/01/16 09:19 98 Room Air 08/01/16 08:53 98.0 73 19 134/60 98 Physical Exam GENERAL: Thin elderly female in NAD, poor historian SKIN: No rashes, ecchymoses or lesions. Cool and dry. HEENT: Atraumatic. Normocephalic. No temporal or scalp tenderness. No scleral icterus. Airway patent. NECK: Trachea midline, supple, nontender. CARDIO: Regular RESP: CTA bilaterally. No wheezes, rales, or rhonchi. ABD: +BS, soft, mildly distended with suprapubic tenderness. EXT: Extremities without clubbing, cyanosis, or edema. NEURO: Awake but keeps eyes closed and refuses to follow commands. Normal speech. Laboratory Laboratory Tests Test 08/01/16 09:10 White Blood Count 13.0 Red Blood Count 4.76 Hemoglobin 14.2 Hematocrit 42.4 Mean Corpuscular Volume 89.1 Mean Corpuscular Hemoglobin 29.8 Mean Corpuscular Hemoglobin 33.5 Concent Red Cell Distribution Width 13.1 Platelet Count 312 Mean Platelet Volume 9.8 Neutrophils (%) (Auto) 75.3 Lymphocytes (%) (Auto) 14.4 Monocytes (%) (Auto) 9.1 Eosinophils (%) (Auto) 0.8 Basophils (%) (Auto) 0.4 Neutrophils # (Auto) 9.8 Lymphocytes # (Auto) 1.9 Monocytes # (Auto) 1.2 Eosinophils # (Auto) 0.1 Basophils # (Auto) 0.1 CBC Comment DIFF FINAL Differential Comment Prothrombin Time 12.1 Prothromb Time International 1.1 Ratio Activated Partial 28.5 Thromboplast Time Urine Color YELLOW Urine Turbidity CLOUDY Urine pH 7.5 Urine Specific [place] 1.023 Urine Protein 30 Urine Glucose (UA) NEG Urine Ketones 80 Urine Occult Blood NEG Urine Nitrite NEG Urine Bilirubin NEG Urine Urobilinogen 4.0 Urine Leukocyte Esterase SMALL Urine RBC 1 Urine WBC 14 Urine Squamous Epithelial 1 Cells Urine Amorphous Sediment FEW Urine Bacteria MOD Urine Mucus FEW Microscopic Urinalysis Comment CATH-CULTURE IND Sodium Level 136 Potassium Level 3.8 Chloride Level 98 Carbon Dioxide Level 25.5 Anion Gap 13 Blood Urea Nitrogen 18 Creatinine 0.88 Estimat Glomerular Filtration 61 Rate Random Glucose 73 Lactic Acid Level 1.4 Calcium Level 9.4 Total Bilirubin 0.7 Aspartate Amino Transf 22 (AST/SGOT) Alanine Aminotransferase 24 (ALT/SGPT) Alkaline Phosphatase 113 Ammonia LESS THAN 10 Troponin I LESS THAN 0.02 Total Protein 8.0 Albumin 3.3 Thyroid Stimulating Hormone 1.220 3rd Gen Salicylates Level LESS THAN 1.7 Urine Opiates Screen NEG Urine Barbiturates Screen NEG Urine Amphetamines Screen NEG Urine Benzodiazepines Screen NEG Urine Cocaine Screen NEG Urine Cannabinoids Screen NEG Ethyl Alcohol Level LESS THAN 3 Date/Time Procedure Status Source Growth 08/01/16 09:10 Urine Culture Received Urine Catheterized Urine Pending 08/01/16 09:10 Aerobic Blood Culture Received Blood Peripheral Pending 08/01/16 09:10 Anaerobic Blood Culture Received Blood Peripheral Pending Result Diagram: 08/01/1610 08/01/16909 Imaging Last Impressions Chest X-Ray 08/01/16 0841 Signed Impressions: Service Date/Time: Monday, August 01, 2016 08:57 - CONCLUSION: Minimal parenchymal opacity at the lateral left base. Jeffery Ibarra MD Septic Shock Reassessment Heart: Regular rate and rhythm Lungs: Clear Skin: Warm Assessment and Plan Problem List: (1) Altered mental state Status: Acute Plan: - Patient was brought over from her [facility] for altered mental status - Pt is a difficult historian but she did report some dysuria for a few days. - Workup in the ED revealed WBC count with left shift and an abnormal UA, urine culture is pending. - Head CT noted stable ventriculomegaly, stable chronic periventricular and subcortical white matter small vessel ischemic changes (right slightly worse than left), but no acute infarct, acute hemorrhage, midline shift or extraaxial fluid collections. - Blood cultures were drawn in the ED. - Pt was given one dose of Cefepime in the ED. - Await urine culture results - Await blood culture results - Start Rocephin - IVF with NS @ 70mL/hr - Supportive care - Monitor labs - PT evaluation - Pt with some pain and distension in the lower abdomen ?bladder, bladder scan to be performed and if pt retaining more than 200cc of urine, then place Velásquez cath. - DVT prophylaxis with SCDs (2) UTI (urinary tract infection) Status: Acute Plan: - See above. (3) HTN (hypertension) Status: Chronic Plan: - Home meds resumed - Monitor (4) Hypothyroid Status: Chronic Plan: - Home meds resumed (5) S/P mitral valve replacement with bioprosthetic valve Status: Chronic Assessment and Plan Patient examined. Assessment and plan formulated with Janine Rivera PA-C. I agree with the above. AMS. UTI and pt c/o of urinary sx's. eval for retention. No apparent change to degree of ventricle dilation on CT..pt with vps noted. cont abx and f/u cx's. gentle ivf until taking po better. Janine Rivera Aug 01, 2016 14:27 Tal Ratliff MD Aug 01, 2016 20:33
[2016-08-01] MEDS: SODIUM CHLOR 0.9% 1000 ML INJ 1,000 ML IV SCH (14:29)
[2016-08-01] MEDS ORDERED: ACETAMINOPHEN 325 MG TAB PO PRN (14:30)
[2016-08-01] MEDS ORDERED: CALCIUM CARBONATE 500 MG CHEWABLE TAB CHEW PRN (14:30)
[2016-08-01] MEDS ORDERED: traMADol HCL 50 MG TAB PO PRN (14:30)
[2016-08-01] MEDS ORDERED: LACTOBACILLUS ACIDOPHILUS TAB PO SCH (21:00)
[2016-08-01] MEDS ORDERED: PT:PROBIOTIC 250 MG PO SCH (21:00)
[2016-08-01] MEDS: SENNOSIDES 8.6 MG TAB PO SCH (21:00)
[2016-08-02] VITALS (9 sets, daily range): BP systolic 128–149; BP diastolic 60–70; PULSE 62–82; RESP 16–18; TEMP 97–98.9; O2SAT 94–97
[2016-08-02] MEDS: LEVOTHYROXINE SODIUM 75 MCG TAB PO SCH (06:52)
[2016-08-02] MEDS: SODIUM CHLOR 0.9% 1000 ML INJ 1,000 ML IV SCH (06:52)
[2016-08-02 07:20] LABS: AUTOMATED NEUTROPHIL # 7.2 TH/MM3 (1.8-7.7); BASOPHIL # 0.1 TH/MM3 (0-0.2); BASOPHIL % 0.7 % (0.0-2.0); EOSINOPHIL # 0.3 TH/MM3 (0-0.4); EOSINOPHIL % 2.6 % (0.0-4.0); HEMATOCRIT 35.7 % (35.0-46.0); HEMO FLAGS DIFF FINAL; LYMPH % 16.4 % (9.0-44.0); LYMPHOCYTE # 1.7 TH/MM3 (1.0-4.8); MEAN CELL VOLUME 88.3 FL (80.0-100.0); MEAN CORPUSCULAR HEMOGLOBIN 30.9 PG (27.0-34.0); MONO % 10.7 % (0.0-8.0); NEUT % 69.6 % (16.0-70.0); PLATELET COUNT 270 TH/MM3 (150-450); RED BLOOD COUNT 4.05 MIL/MM3 (4.00-5.30); RED CELL DISTRIBUTION WIDTH 13.2 % (11.6-17.2); WHITE BLOOD COUNT 10.4 TH/MM3 (4.0-11.0)
[2016-08-02 08:52] LABS: BICARBONATE 21.1 MEQ/L (21.0-32.0); MAGNESIUM 1.8 MG/DL (1.5-2.5); POTASSIUM 3.4 MEQ/L (3.5-5.1)
[2016-08-02] MEDS ORDERED: DILTIAZEM-CD 120 MG CAP ER PO SCH (09:00)
[2016-08-02] MEDS ORDERED: METOPROLOL TARTRATE 50 MG TAB PO SCH (09:00)
[2016-08-02] MEDS ORDERED: cefTRIAXone INJ 1,000 MG in SODIUM CHLORIDE 0.9% INJ 100 ML IV SCH (09:00)
[2016-08-02] MEDS: ESCITALOPRAM OXALATE 10 MG TAB PO SCH (09:21)
[2016-08-02] MEDS: SERTRALINE HCL 50 MG TAB PO SCH (09:21)
[2016-08-02] MEDS: ASPIRIN EC 81 MG TABEC PO SCH (09:21)
--- NOTE | 2016-08-02 10:26 | EKG ---
Date Performed: 08/01/2016 Time Performed: 12:32:02 PTAGE: 89 years EKG: Sinus rhythm WITH FIRST DEGREE AV BLOCK WITH FREQUENT SUPRAVENTRICULAR PREMATURE COMPLEXES LOW QRS VOLTAGE IN PRE CORDIAL LEADS ST DEVIATION AND MODERATE T-WAVE ABNORMALITY, CONSIDER LATERAL ISCHEMIA ABNORMAL ECG PREVIOUS TRACING : 08/01/2016 08.56 DOCTOR: Torrey Quezada Interpretating Date/Time 08/02/2016 10:21:54
--- NOTE | 2016-08-02 11:26 | HHI.PR ---
Subjective Remarks seems more alert. demented for short term. great retirement memory. Objective Vitals more alert dementia heart reg lung cta abd s/nt ext no edema torre Vital Signs Date Time Temp Pulse Resp B/P Pulse Ox O2 Delivery O2 Flow Rate FiO2 08/02/16 08:02 82 08/02/16 08:00 98.0 75 18 148/67 95 08/02/16 04:00 98.9 80 18 142/65 95 08/02/16 00:00 97.9 80 18 136/70 94 08/01/16 21:32 84 08/01/16 21:15 98.1 82 18 155/91 91 08/01/16 20:00 81 16 135/61 97 Room Air 08/01/16 18:00 99.6 85 20 142/65 95 Room Air 08/01/16 14:27 77 20 153/65 95 Room Air 08/01/16 08/01/16 08/02/16 15:00 23:00 07:00 Intake Total 0 ml 1155 ml Output Total 1000 ml 350 ml Balance -1000 ml 805 ml Intake Oral 0 ml 100 ml IV Total 1055 ml Output Urine Total 1000 ml 350 ml Bladder Scan Volume Amount 800 ml # Voids 0 # Bowel Movements 0 0 Result Diagram: 08/02/16 0632 08/02/16 0632 Imaging Last Impressions Chest X-Ray 08/01/16 0841 Signed Impressions: Service Date/Time: Monday, August 01, 2016 08:57 - CONCLUSION: Minimal parenchymal opacity at the lateral left base. Jeffery Ibarra MD A/P Problem List: (1) Altered mental state Status: Acute Plan: - Patient was brought over from her [facility] for altered mental status - Pt is a difficult historian but she did report some dysuria for a few days. - Workup in the ED revealed WBC count with left shift and an abnormal UA, urine culture is pending. - Head CT noted stable ventriculomegaly, stable chronic periventricular and subcortical white matter small vessel ischemic changes (right slightly worse than left), but no acute infarct, acute hemorrhage, midline shift or extraaxial fluid collections. -exam concerning for urine retention and bladder scan 800cc cont torre iv abx f/u cx start po diet gentle ivf PT. will need snf hypoglycemia. will change ivf to d5 with kcl (2) UTI (urinary tract infection) Status: Acute Plan: - See above. (3) HTN (hypertension) Status: Chronic Plan: - Home meds resumed - Monitor (4) Hypothyroid Status: Chronic Plan: - Home meds resumed (5) S/P mitral valve replacement with bioprosthetic valve Status: Chronic Tal Ratliff MD Aug 02, 2016 11:26
[2016-08-02] MEDS: D5-NS + KCL 20 MEQ INJ 1,000 ML IV SCH ×2 (12:50→23:55)
[2016-08-02] MEDS: SENNOSIDES 8.6 MG TAB PO SCH (21:21)
[2016-08-03] VITALS (10 sets, daily range): BP systolic 82–144; BP diastolic 51–67; PULSE 54–162; RESP 16–18; TEMP 97.3–98.5; O2SAT 92–96
[2016-08-03] MEDS: LEVOTHYROXINE SODIUM 75 MCG TAB PO SCH (05:03)
[2016-08-03] MEDS: ONDANSETRON HCL 4 MG/2 ML VIAL IV PRN (05:07)
[2016-08-03] MEDS ORDERED: DILTIAZEM-CD 120 MG CAP ER PO ONE (05:15)
[2016-08-03] MEDS ORDERED: METOPROLOL TARTRATE 50 MG TAB PO ONE (05:15)
[2016-08-03] MEDS ORDERED: ADENOSINE IV SOLN 3 MG/ML 2 ML VIAL IV PUSH ONE (07:00)
[2016-08-03] MEDS ORDERED: ADENOSINE IV SOLN 3 MG/ML 2 ML VIAL ONE (07:01)
[2016-08-03] MEDS ORDERED: AMIODARONE INJ 150 MG in DEXTROSE 5% IN WATER 100ML INJ 97 ML IV ONE ×2 (07:15)
[2016-08-03] MEDS ORDERED: AMIODARONE INJ 450 MG in DEXTROSE 5% IN WATE(EXCEL) INJ 241 ML IV SCH ×2 (07:15)
[2016-08-03 07:16] LABS: BICARBONATE 21.4 MEQ/L (21.0-32.0); POTASSIUM 3.2 MEQ/L (3.5-5.1)
[2016-08-03] MEDS ORDERED: POTASSIUM CHLORIDE 20 MEQ CONTROLLED RELEASE TAB PO ONE (07:30)
--- NOTE | 2016-08-03 07:32 | HHI.PR ---
Subjective Remarks Called re: pt with tachycardia around 445 AM. EKG ordered at that time and BB/ CCB med given early. EKG revealed SVT in 150s. BP initially in 150-160 systolically, but later dropper to around 100. Came to see pt who remained asymptomatic. She has been admitted for AMS, but her mentation has reportedly returned to baseline. She is somewhat confused about current events but knows she's in the hospital and the year. She isn't able to recall all her meds and believes she lives at home with her parents. I spoke with Dr Mares on the way in and he has seen/evaluated the pt. EKG review demonstrates SVT with rate in 150s and ST depression in several leads. Pt again denies CP or SOB. Objective Vitals GENERAL: somewhat confused, but knows she's in hospital. Follows simple commands. SKIN: Warm and dry. HEAD: Normocephalic. EYES: No scleral icterus. No injection or drainage. NECK: Supple, trachea midline. No lymphadenopathy. CARDIOVASCULAR: Regular rhythm, tachycardic without gallops or rubs. RESPIRATORY: Breath sounds equal bilaterally. No accessory muscle use. GASTROINTESTINAL: Abdomen soft, non-tender, nondistended. MUSCULOSKELETAL: No cyanosis, or edema. Vital Signs Date Time Temp Pulse Resp B/P Pulse Ox O2 Delivery O2 Flow Rate FiO2 08/03/16 07:05 93 21 08/03/16 06:15 160 16 98/63 92 08/03/16 05:35 162 16 91/58 95 08/03/16 04:40 154 16 116/66 95 08/03/16 04:02 98.5 76 16 143/67 95 08/02/16 23:10 98.2 77 16 144/70 94 08/02/16 20:00 74 08/02/16 19:30 98.0 74 16 128/60 94 08/02/16 16:00 97.0 67 18 143/64 97 08/02/16 12:00 98.0 62 18 149/67 96 08/02/16 08:02 82 08/02/16 08:00 98.0 75 18 148/67 95 08/02/16 08/02/16 08/03/16 15:00 23:00 07:00 Intake Total 1175 ml 240 ml 1164 ml Output Total 400 ml 250 ml 350 ml Balance 775 ml -10 ml 814 ml Intake Oral 120 ml 240 ml 0 ml IV Total 1055 ml 1164 ml Output Urine Total 400 ml 250 ml 350 ml # Bowel Movements 1 1 3 Result Diagram: 08/02/16 0632 08/03/16 0556 Imaging Last Impressions Chest X-Ray 08/01/16 0841 Signed Impressions: Service Date/Time: Monday, August 01, 2016 08:57 - CONCLUSION: Minimal parenchymal opacity at the lateral left base. Jeffery Ibarra MD A/P Problem List: (1) SVT (supraventricular tachycardia) Status: Acute Plan: Called this AM as noted. Vagal maneuvers failed to break rhythm. Cardiology consulted and Dr Mares evaluated pt with me. Adenosine pushed at bedside resulted in brief slowed sinus rhythm, but quickly returned to 150s. Amio load with subsequent drip planned. May try Adenocard again after initial 150mg amio is loaded. Dr Mares' assistance much appreciated. Pt has some ST depression in multiple leads and certainly has risks for ischemia. (2) Altered mental state Status: Acute Plan: - Patient was brought over from her [facility] for altered mental status - Pt is a difficult historian but she did report some dysuria for a few days. - Workup in the ED revealed WBC count with left shift and an abnormal UA, urine culture is pending. - Head CT noted stable ventriculomegaly, stable chronic periventricular and subcortical white matter small vessel ischemic changes (right slightly worse than left), but no acute infarct, acute hemorrhage, midline shift or extraaxial fluid collections. cont torre due to urinary retention iv abx f/u cx start po diet gentle ivf PT. will need snf D5 with K+ supplement has been running overnight. (3) UTI (urinary tract infection) Status: Acute Plan: - See above. (4) HTN (hypertension) Status: Chronic Plan: - Home meds resumed - Monitor BP low this AM due SVT, meds. (5) Hypothyroid Status: Chronic Plan: - Home meds resumed (6) S/P mitral valve replacement with bioprosthetic valve Status: Chronic Problem Qualifiers (1) HTN (hypertension): Qualified Code: I10 - Essential hypertension Carloz Gray MD PhD Aug 03, 2016 07:32
[2016-08-03 08:29] LABS: AUTOMATED NEUTROPHIL # 9.9 TH/MM3 (1.8-7.7); BASOPHIL # 0.1 TH/MM3 (0-0.2); BASOPHIL % 0.6 % (0.0-2.0); EOSINOPHIL # 0.1 TH/MM3 (0-0.4); HEMATOCRIT 35.5 % (35.0-46.0); HEMO FLAGS DIFF FINAL; LYMPH % 8.2 % (9.0-44.0); MEAN CELL VOLUME 86.9 FL (80.0-100.0); MEAN CORPUSCULAR HEMOGLOBIN 30.4 PG (27.0-34.0); MONO % 10.4 % (0.0-8.0); NEUT % 79.8 % (16.0-70.0); PLATELET COUNT 289 TH/MM3 (150-450); RED BLOOD COUNT 4.08 MIL/MM3 (4.00-5.30); RED CELL DISTRIBUTION WIDTH 13.2 % (11.6-17.2); WHITE BLOOD COUNT 12.4 TH/MM3 (4.0-11.0)
[2016-08-03 08:41] LABS: BICARBONATE 22.5 MEQ/L (21.0-32.0); POTASSIUM 3.5 MEQ/L (3.5-5.1)
[2016-08-03 08:56] LABS: MAGNESIUM 1.8 MG/DL (1.5-2.5)
[2016-08-03] MEDS: SERTRALINE HCL 50 MG TAB PO SCH (09:00)
[2016-08-03] MEDS: ESCITALOPRAM OXALATE 10 MG TAB PO SCH (09:00)
[2016-08-03] MEDS: ASPIRIN EC 81 MG TABEC PO SCH (09:00)
--- NOTE | 2016-08-03 09:20 | EKG ---
Date Performed: 08/03/2016 Time Performed: 04:55:26 PTAGE: 89 years EKG: supraventricular tachycardia. Possible anterior infarct - age undetermined Inferior/lateral ST-T changes suggest myocardial injury/ischemia Abnormal ECG PREVIOUS TRACING : 08/01/2016 12.32 DOCTOR: Ryder Rowley Interpretating Date/Time 08/03/2016 09:18:06
--- NOTE | 2016-08-03 09:28 | MB ---
cc: MICHAELLE WHITTINGTON MD DATE OF CONSULTATION 08/03/2016 REASON FOR CONSULTATION This is an 89-year-old woman who was admitted to the hospital for altered mental status. 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 She apparently had increasing dementia in her [facility] and was brought to the hospital. She was found to have a urinary tract infection. This morning she developed a tachycardic rhythm which appeared to be SVT on ECG tracings. She was initially tried with a Cardizem bolus and some p.o. Metoprolol without success. We saw her and tried adenosine x2. With the first dose, she did convert to sinus rhythm for four or five beats and then return back to her SVT. She has subsequently been given a bolus of amiodarone with conversion back to sinus rhythm. The patient denied any problems with chest pain or shortness of breath. No lightheadedness or dizziness was present throughout her episode, although we did notice a decrease in her blood pressure after several hours of a tachycardia rhythm down to 100/70. She is currently resting comfortably. She is somewhat demented. She knows that she is in the hospital. She does not recall having heart surgery and is not sure of what her medical regimen consists of or the reasons for her medical regimen. She does have a history of hypothyroidism as well. She does have a history of hypertension, but no diabetes or hyperlipidemia has been present and it is unclear whether she had a bypass surgery or not, but does not appear to have had that done. MEDICATIONS In the [facility] include: 1. Zoloft 2. Metoprolol 50 mg daily 3. Diltiazem 120 mg daily 4. Escitalopram 5 mg daily 5. Aspirin 81 daily 6. Detrol 4 mg daily 7. Lovastatin 20 daily 8. Synthroid 75 mcg daily ALLERGIES EXTENSIVE AND INCLUDE CELEBREX, CYMBALTA, ERYTHROMYCIN, NEURONTIN, PREDNISONE, VIOXX AND PERCOCET. All of these appear to be more adverse reactions than true allergies. PHYSICAL EXAM She is awake and alert. VITAL SIGNS: Blood pressure is 100/70, pulse is back to 60 and regular. NECK: There is no neck vein distension. LUNGS: Clear. CARDIOVASCULAR: Exam reveals regular rate and rhythm with no murmur or gallop noted. ASSESSMENT The patient has had a run of sustained SVT. She is currently on amiodarone and we will complete a loading dose for her. I will go ahead and recheck troponins, but she does not appear to be a candidate for invasive strategies due to her dementia and advanced age. We will also continue her metoprolol as before, but increase the dose to 50 mg twice daily. MD ARMOND Sandoval/BRIAN /9:04 AM /9:17 AM
--- NOTE | 2016-08-03 11:25 | HHI.PR ---
Subjective Remarks Pt developed sustained SVT around 0445 this morning. Vagal maneuvers failed to break rhythm, as did a Cardizem bolus and Metoprolol Dr. Gray saw the pt this morning along with Cardiology Adenosine was pushed at bedside which resulted in brief slowed sinus rhythm, but quickly returned to 150s. Amiodarone was loaded and then Amio gtt started Pt converted to NSR but since about 0900 she has been bradycardic in the 40-50's Objective Vitals Vital Signs Date Time Temp Pulse Resp B/P Pulse Ox O2 Delivery O2 Flow Rate FiO2 08/03/16 08:00 97.8 68 18 82/51 95 08/03/16 07:10 153 105/53 08/03/16 07:05 93 21 08/03/16 06:15 160 16 98/63 92 08/03/16 05:35 162 16 91/58 95 08/03/16 04:40 154 16 116/66 95 08/03/16 04:02 98.5 76 16 143/67 95 08/02/16 23:10 98.2 77 16 144/70 94 08/02/16 20:00 74 08/02/16 19:30 98.0 74 16 128/60 94 08/02/16 16:00 97.0 67 18 143/64 97 08/02/16 12:00 98.0 62 18 149/67 96 08/02/16 08/02/16 08/03/16 15:00 23:00 07:00 Intake Total 1175 ml 240 ml 1164 ml Output Total 400 ml 250 ml 350 ml Balance 775 ml -10 ml 814 ml Intake Oral 120 ml 240 ml 0 ml IV Total 1055 ml 1164 ml Output Urine Total 400 ml 250 ml 350 ml # Bowel Movements 1 1 3 Result Diagram: 08/03/16 0740 08/03/16 0740 Other Results Laboratory Tests Test 08/02/16 08/03/16 08/03/16 06:32 05:56 07:40 White Blood Count 10.4 TH/MM3 12.4 TH/MM3 Red Blood Count 4.05 MIL/MM3 4.08 MIL/MM3 Hemoglobin 12.5 GM/DL 12.4 GM/DL Hematocrit 35.7 % 35.5 % Mean Corpuscular Volume 88.3 FL 86.9 FL Mean Corpuscular Hemoglobin 30.9 PG 30.4 PG Mean Corpuscular Hemoglobin 35.0 % 35.0 % Concent Red Cell Distribution Width 13.2 % 13.2 % Platelet Count 270 TH/MM3 289 TH/MM3 Mean Platelet Volume 9.7 FL 9.8 FL Neutrophils (%) (Auto) 69.6 % 79.8 % Lymphocytes (%) (Auto) 16.4 % 8.2 % Monocytes (%) (Auto) 10.7 % 10.4 % Eosinophils (%) (Auto) 2.6 % 1.0 % Basophils (%) (Auto) 0.7 % 0.6 % Neutrophils # (Auto) 7.2 TH/MM3 9.9 TH/MM3 Lymphocytes # (Auto) 1.7 TH/MM3 1.0 TH/MM3 Monocytes # (Auto) 1.1 TH/MM3 1.3 TH/MM3 Eosinophils # (Auto) 0.3 TH/MM3 0.1 TH/MM3 Basophils # (Auto) 0.1 TH/MM3 0.1 TH/MM3 CBC Comment DIFF FINAL DIFF FINAL Differential Comment Sodium Level 138 MEQ/L 136 MEQ/L 138 MEQ/L Potassium Level 3.4 MEQ/L 3.2 MEQ/L 3.5 MEQ/L Chloride Level 107 MEQ/L 103 MEQ/L 106 MEQ/L Carbon Dioxide Level 21.1 MEQ/L 21.4 MEQ/L 22.5 MEQ/L Anion Gap 10 MEQ/L 12 MEQ/L 10 MEQ/L Blood Urea Nitrogen 11 MG/DL 11 MG/DL 11 MG/DL Creatinine 0.56 MG/DL 0.73 MG/DL 0.72 MG/DL Estimat Glomerular Filtration 102 ML/MIN 75 ML/MIN 76 ML/MIN Rate Random Glucose 69 MG/DL 151 MG/DL 130 MG/DL Calcium Level 8.5 MG/DL 8.5 MG/DL 8.2 MG/DL Magnesium Level 1.8 MG/DL 1.8 MG/DL Troponin I 0.02 NG/ML Imaging Last Impressions Head CT 08/01/16 0841 Signed Impressions: Service Date/Time: Monday, August 01, 2016 10:12 - CONCLUSION: 1. Stable ventriculomegaly. 2. Stable chronic periventricular and subcortical white matter small vessel ischemic changes (right slightly worse than left). 3. No acute infarct, acute hemorrhage, midline shift or extraaxial fluid collections. Chadwick Zhong MD Chest X-Ray 08/01/16 0841 Signed Impressions: Service Date/Time: Monday, August 01, 2016 08:57 - CONCLUSION: Minimal parenchymal opacity at the lateral left base. Jeffery Ibarra MD Objective Remarks General: NAD, Awakens easily, oriented to self. [facility] memory intact, short term memory is poor Chest: CTA Cardiac: Regular, bradycardic Abd: +BS, soft ND/NT Ext: No edema A/P Problem List: (1) SVT (supraventricular tachycardia) Status: Acute Plan: - Pt developed sustained SVT around 0445 this morning. - Vagal maneuvers failed to break rhythm, as did a Cardizem bolus and Metoprolol - Dr. Gray saw the pt this morning along with Cardiology - Adenosine was pushed at bedside which resulted in brief slowed sinus rhythm, but quickly returned to 150s. - Amiodarone was loaded and then Amio gtt started - Pt converted to NSR but since about 0900 she has been bradycardic in the 40-50 's - Pt also has Metoprolol 50mg po BID and Cardizem 120mg po daily - Hold Cardizem for now. - Monitor telemetry - Instructed the nurse to update Dr. Mares if pts HR started decreasing into the 40's or lower on telemetry (2) Altered mental state Status: Acute Plan: - Patient was brought over from her [facility] for altered mental status - Pt is a difficult historian but she did report some dysuria for a few days. - Workup in the ED revealed WBC count with left shift and an abnormal UA, urine culture is pending. - Head CT noted stable ventriculomegaly, stable chronic periventricular and subcortical white matter small vessel ischemic changes (right slightly worse than left), but no acute infarct, acute hemorrhage, midline shift or extraaxial fluid collections. - Pt had Velásquez placed due to urinary retention - Cont. iv abx - Urine Cx grew out E. coli and Strep Viridans - CHange IV Abx to Augmentin 500mg Q8H - Gentle ivf - PT. - Pt will need snf (3) UTI (urinary tract infection) Status: Acute Plan: - See above. (4) HTN (hypertension) Status: Chronic Plan: - Monitor - BP low this AM due SVT, meds. (5) Hypothyroid Status: Chronic Plan: - Home meds resumed (6) S/P mitral valve replacement with bioprosthetic valve Status: Chronic Assessment and Plan Patient examined. Assessment and plan formulated with Janine Rivera PA-C. I agree with the above. svt this AM. seen by cardiology. on amio gtt and metoprolol. monitor for tj. cardizem held. bp was lower this AM dementia. uti change iv to po abx. ivf with d5 for hypoglycemia. Problem Qualifiers (1) HTN (hypertension): Qualified Code: I10 - Essential hypertension Janine Rivera Aug 03, 2016 11:25 Tal Ratliff MD Aug 03, 2016 11:38
[2016-08-03] MEDS: D5-NS + KCL 20 MEQ INJ 1,000 ML IV SCH ×2 (11:50→23:45)
[2016-08-03] MEDS: AMOXICILLIN/CLAVULANATE K 500 MG TAB PO SCH ×2 (14:00→21:38)
--- NOTE | 2016-08-03 19:01 | EC ---
Study Study Date:08/03/2016 STUDY CONCLUSIONS SUMMARY - Left ventricle: The cavity size was normal. Wall thickness was normal. Systolic function was mildly reduced. The estimated ejection fraction was 45%. Wall motion was normal; there were no regional wall motion abnormalities. - Mitral valve: Moderate stenosis of mitral valve prosthesis. - Left atrium: The atrium was mildly dilated. - Right ventricle: The cavity size was dilated. Wall thickness was increased. RV dysfunction present. - Tricuspid valve: Moderate regurgitation. - Pulmonary arteries: Systolic pressure was moderately increased. PA peak pressure: 60mm Hg (S). If LV function is below 40, please consider prescribing an ACEI or ARB or document rationale for non-use. PROCEDURE DATA STUDY STATUS: Elective. Procedure: Transthoracic echocardiography. Image quality was good. Scanning was performed from the parasternal, apical, and subcostal acoustic windows. Study completion: The patient tolerated the procedure well. Transthoracic echocardiography. M-mode, complete 2D, complete spectral Doppler, and color Doppler. Patient status: Inpatient. CARDIAC ANATOMY LEFT VENTRICLE: The cavity size was normal. Wall thickness was normal. Systolic function was mildly reduced. The estimated ejection fraction was 45%. Wall motion was normal; there were no regional wall motion abnormalities. AORTIC VALVE: Trileaflet; normal thickness leaflets. Doppler: Transvalvular velocity was within the normal range. There was no stenosis. No regurgitation. AORTA: Aortic root: The aortic root was normal in size. MITRAL VALVE: Moderate stenosis of mitral valve prosthesis. Doppler: Transvalvular velocity was within the normal range. There was no evidence for stenosis. Trace regurgitation. Valve area by pressure half-time: 1.05cm^2. Mean gradient: 7mm Hg (D). Peak gradient: 19mm Hg (D). LEFT ATRIUM: The atrium was mildly dilated. RIGHT VENTRICLE: The cavity size was dilated. Wall thickness was increased. RV dysfunction present. PULMONIC VALVE: Doppler: Transvalvular velocity was within the normal range. There was no evidence for stenosis. No regurgitation. TRICUSPID VALVE: Structurally normal valve. Doppler: Transvalvular velocity was within the normal range. Moderate regurgitation. PULMONARY ARTERY: The main pulmonary artery was normal-sized. Systolic pressure was moderately increased. RIGHT ATRIUM: The atrium was normal in size. PERICARDIUM: There was no pericardial effusion. SYSTEMIC VEINS: Inferior vena cava: The vessel was normal in size. BASIC MEASUREMENTS ADULT Normal Left ventricle LV internal dimension, ED, chordal level, *40.1 mm 43-52 PLAX LV posterior wall thickness, ED 6.9 mm IVS/LVPW ratio, ED 1.01 <1.3 Ventricular septum Septal thickness, ED 6.95 mm Aortic valve Leaflet separation 18 mm 15-26 Left atrium Anterior-posterior dimension 43 mm Right ventricle RV internal dimension, ED, PLAX 26.9 mm 19-38 BASIC MEASUREMENTS ADULT Normal Aortic valve Leaflet separation 18 mm 15-26 Aorta Root diameter, ED 29 mm 20-37 DOPPLER MEASUREMENTS ADULT Normal Main pulmonary artery Pressure, S *60 mm Hg =30 Aortic valve VTI, S 83.8 cm Mitral valve Peak E-wave velocity 149 cm/s Peak A-wave velocity 88.2 cm/s Mean velocity, D 120 cm/s Pressure half-time 209 ms Mean gradient, D 7 mm Hg Peak gradient, D 19 mm Hg Peak E/A ratio 1.7 Valve area, pressure half-time 1.05 cm^2 Tricuspid valve Regurgitant peak velocity 315 cm/s Peak RV-RA gradient, S 40 mm Hg Maximal regurgitant velocity 315 cm/s Systemic veins Estimated CVP 10 mm Hg Right ventricle RV pressure, S *60 mm Hg <30 LEGEND: Mean values are shown as u=mean value. Asterisk (*) davis values outside specified normal range. Prepared and signed by Genesis Espinoza [id number]
[2016-08-03] MEDS: METOPROLOL TARTRATE 50 MG TAB PO SCH (21:38)
[2016-08-03] MEDS: SENNOSIDES 8.6 MG TAB PO SCH (21:38)
[2016-08-04] VITALS: BP 131/60; PULSE 72; RESP 16; TEMP 97.6; O2SAT 94
[2016-08-04 04:00] VITALS: BP 131/60; PULSE 61; RESP 18; TEMP 98.1; O2SAT 94
[2016-08-04] MEDS: AMOXICILLIN/CLAVULANATE K 500 MG TAB PO SCH ×3 (06:00→20:54)
[2016-08-04] MEDS: LEVOTHYROXINE SODIUM 75 MCG TAB PO SCH (06:00)
--- NOTE | 2016-08-04 07:49 | PD.CARD.PN ---
Subjective Subjective Remarks no CV complaints Objective Vital Signs / I&O Vital Signs Date Time Temp Pulse Resp B/P Pulse Ox O2 Delivery O2 Flow Rate FiO2 08/04/16 04:00 98.1 61 18 131/60 94 08/04/16 00:00 97.6 72 16 131/60 94 08/03/16 20:00 58 08/03/16 20:00 97.8 56 18 144/63 95 08/03/16 16:00 97.3 58 18 133/60 95 08/03/16 12:00 97.8 54 18 109/58 96 08/03/16 08:00 97.8 68 18 82/51 95 I/O 08/03/16 08/03/16 08/03/16 08/04/16 08/04/16 08/04/16 07:00 15:00 23:00 07:00 15:00 23:00 Intake Total 1164 ml 240 ml 120 ml 120 ml Output Total 350 ml 200 ml 300 ml 400 ml Balance 814 ml 40 ml -180 ml -280 ml Intake Oral 0 ml 240 ml 120 ml 120 ml IV Total 1164 ml Output Urine Total 350 ml 200 ml 300 ml 400 ml # Bowel Movements 3 0 0 1 Physical Exam GENERAL: Well-nourished, well-developed patient in no apparent distress. NECK: No JVD. No carotid bruit. CARDIOVASCULAR: Regular rate and rhythm. S1/S2 no murmur, rub, or gallop. RESPIRATORY: No accessory muscle use. Clear to auscultation. Breath sounds equal bilaterally. GASTROINTESTINAL: Abdomen soft, non-tender, nondistended. MUSCULOSKELETAL: Extremities without clubbing, cyanosis, or edema. Assessment and Plan Problem List: (1) SVT (supraventricular tachycardia) Assessment and Plan review of telemetry shows no further SVT. Troponin is negative. There is still a troponin pending. We will sign off. If next troponin is negative she can be discharged from a CV standpoint Roshan Walton Aug 04, 2016 07:48
[2016-08-04 08:00] VITALS: BP 132/62; PULSE 95; RESP 18; TEMP 97.6; O2SAT 97
[2016-08-04] MEDS: ESCITALOPRAM OXALATE 10 MG TAB PO SCH (09:00)
[2016-08-04] MEDS: ASPIRIN EC 81 MG TABEC PO SCH (09:00)
[2016-08-04] MEDS: METOPROLOL TARTRATE 50 MG TAB PO SCH ×2 (09:00→20:54)
[2016-08-04] MEDS: SERTRALINE HCL 50 MG TAB PO SCH (09:00)
[2016-08-04] MEDS: AMIODARONE 200 MG TAB PO SCH (09:00)
--- NOTE | 2016-08-04 11:48 | HHI.PR ---
Subjective Remarks Pt confused, at baseline. Pts HR has been sustaining in the 50-60's and BP has been more stable NO issues overnight per nursing staff. Objective Vitals Vital Signs Date Time Temp Pulse Resp B/P Pulse Ox O2 Delivery O2 Flow Rate FiO2 08/04/16 08:00 97.6 95 18 132/62 97 08/04/16 04:00 98.1 61 18 131/60 94 08/04/16 00:00 97.6 72 16 131/60 94 08/03/16 20:00 58 08/03/16 20:00 97.8 56 18 144/63 95 08/03/16 16:00 97.3 58 18 133/60 95 08/03/16 12:00 97.8 54 18 109/58 96 08/03/16 08/03/16 08/04/16 15:00 23:00 07:00 Intake Total 240 ml 120 ml 120 ml Output Total 200 ml 300 ml 400 ml Balance 40 ml -180 ml -280 ml Intake Oral 240 ml 120 ml 120 ml Output Urine Total 200 ml 300 ml 400 ml # Bowel Movements 0 0 1 Result Diagram: 08/03/16 0740 08/03/16 0740 Other Results Laboratory Tests Test 08/03/16 08/03/16 08/04/16 05:56 07:40 06:50 Sodium Level 136 MEQ/L 138 MEQ/L Potassium Level 3.2 MEQ/L 3.5 MEQ/L Chloride Level 103 MEQ/L 106 MEQ/L Carbon Dioxide Level 21.4 MEQ/L 22.5 MEQ/L Anion Gap 12 MEQ/L 10 MEQ/L Blood Urea Nitrogen 11 MG/DL 11 MG/DL Creatinine 0.73 MG/DL 0.72 MG/DL Estimat Glomerular Filtration 75 ML/MIN 76 ML/MIN Rate Random Glucose 151 MG/DL 130 MG/DL Calcium Level 8.5 MG/DL 8.2 MG/DL White Blood Count 12.4 TH/MM3 Red Blood Count 4.08 MIL/MM3 Hemoglobin 12.4 GM/DL Hematocrit 35.5 % Mean Corpuscular Volume 86.9 FL Mean Corpuscular Hemoglobin 30.4 PG Mean Corpuscular Hemoglobin 35.0 % Concent Red Cell Distribution Width 13.2 % Platelet Count 289 TH/MM3 Mean Platelet Volume 9.8 FL Neutrophils (%) (Auto) 79.8 % Lymphocytes (%) (Auto) 8.2 % Monocytes (%) (Auto) 10.4 % Eosinophils (%) (Auto) 1.0 % Basophils (%) (Auto) 0.6 % Neutrophils # (Auto) 9.9 TH/MM3 Lymphocytes # (Auto) 1.0 TH/MM3 Monocytes # (Auto) 1.3 TH/MM3 Eosinophils # (Auto) 0.1 TH/MM3 Basophils # (Auto) 0.1 TH/MM3 CBC Comment DIFF FINAL Differential Comment Magnesium Level 1.8 MG/DL Troponin I 0.02 NG/ML 0.06 NG/ML Imaging Last Impressions Head CT 08/01/16840 Signed Impressions: Service Date/Time: Monday, August 01, 2016 10:12 - CONCLUSION: 1. Stable ventriculomegaly. 2. Stable chronic periventricular and subcortical white matter small vessel ischemic changes (right slightly worse than left). 3. No acute infarct, acute hemorrhage, midline shift or extraaxial fluid collections. Chadwick Zhong MD Chest X-Ray 08/01/16840 Signed Impressions: Service Date/Time: Monday, August 01, 2016 08:57 - CONCLUSION: Minimal parenchymal opacity at the lateral left base. Jeffery Ibarra MD Objective Remarks General: NAD, Awakens easily, oriented to self. Poor historian Chest: CTA Cardiac: Regular, bradycardic Abd: +BS, soft ND/NT Ext: No edema A/P Problem List: (1) SVT (supraventricular tachycardia) Status: Acute Plan: - Pt developed sustained SVT around on 08/03. - Vagal maneuvers failed to break rhythm, as did a Cardizem bolus and Metoprolol - Dr. Gray saw the pt this morning along with Cardiology - Adenosine was pushed at bedside which resulted in brief slowed sinus rhythm, but quickly returned to 150s. - Amiodarone was loaded and then Amio gtt started - Pt converted to NSR but was bradycardic in the 40-50's yesterday - Pt was continued on Metoprolol 50mg po BID - Cardizem was stopped. - Pt was converted from Amio gtt to po Amiodarone this morning. - HR and BP have been stable, HR in the 50-60's. - Monitor telemetry - Anticipate discharge tomorrow if pt remains stable. (2) Altered mental state Status: Acute Plan: - Patient was [facility] for altered mental status - Pt is a difficult historian but she did report some dysuria for a few days. - Workup in the ED revealed WBC count with left shift and an abnormal UA, urine culture is pending. - Head CT noted stable ventriculomegaly, stable chronic periventricular and subcortical white matter small vessel ischemic changes (right slightly worse than left), but no acute infarct, acute hemorrhage, midline shift or extraaxial fluid collections. - Pt had Torre placed due to urinary retention, we will try to d/c Torre today - Stop IVF - Urine Cx grew out E. coli and Strep Viridans - Abx changed to Augmentin 500mg Q8H - Pt appears to be at her baseline mental status at this point. - PT (3) UTI (urinary tract infection) Status: Acute Plan: - See above. (4) HTN (hypertension) Status: Chronic Plan: - Stable. - Monitor (5) Hypothyroid Status: Chronic Plan: - Home meds resumed (6) S/P mitral valve replacement with bioprosthetic valve Status: Chronic Assessment and Plan Patient examined. Assessment and plan formulated with Janine Rivera PA-C. I agree with the above. d/c ivf. d/c torre and recheck for retention. cont bb/amio for svt..now sinus. cont abx for uti. check with family about snf vs hospice. Problem Qualifiers (1) HTN (hypertension): Qualified Code: I10 - Essential hypertension Janine Rivera Aug 04, 2016 11:48 Tal Ratliff MD Aug 04, 2016 12:00
[2016-08-04 12:00] VITALS: BP 115/56; PULSE 57; RESP 16; TEMP 97.6; O2SAT 98
[2016-08-04 15:00] VITALS: BP 123/76; PULSE 58; RESP 18; TEMP 98; O2SAT 96
[2016-08-04 20:00] VITALS: BP 125/60; PULSE 67; RESP 20; TEMP 98.7; O2SAT 95
--- NOTE | 2016-08-04 20:45 | EKG ---
Date Performed: 08/04/2016 Time Performed: 06:27:14 PTAGE: 89 years EKG: Sinus bradycardia with PAC(s) with 1st degree A-V block Prolonged QT interval Possible sept al infarct - age undetermined Inferior/lateral ST-T changes are nonspecific Low QRS voltages in preco rdial leads When copmpared to previous tracing, sinus Bradycardia has Replaced supraventricular tachy cardia. Previously seen marked ST depressions have improved significantly At the slower rate. Abnorma l ECG PREVIOUS TRACING : 08/03/2016 04.55.26 DOCTOR: Naseem Shahid Interpretating Date/Time 08/04/2016 20:44:31
[2016-08-04] MEDS: SENNOSIDES 8.6 MG TAB PO SCH (20:54)
[2016-08-04] MEDS: ONDANSETRON HCL 4 MG/2 ML VIAL IV PRN (23:38)
[2016-08-05 00:20] VITALS: BP 131/60; PULSE 65; RESP 20; TEMP 99.2; O2SAT 93
[2016-08-05 04:00] VITALS: BP 115/55; PULSE 59; RESP 20; TEMP 98.3; O2SAT 93
[2016-08-05] MEDS: LEVOTHYROXINE SODIUM 75 MCG TAB PO SCH (05:35)
[2016-08-05] MEDS: AMOXICILLIN/CLAVULANATE K 500 MG TAB PO SCH ×2 (05:35→13:19)
[2016-08-05 08:16] VITALS: BP 124/57; PULSE 61; RESP 18; TEMP 98.9; O2SAT 95
[2016-08-05] MEDS: AMIODARONE 200 MG TAB PO SCH (08:43)
[2016-08-05] MEDS: ESCITALOPRAM OXALATE 10 MG TAB PO SCH (08:43)
[2016-08-05] MEDS: METOPROLOL TARTRATE 50 MG TAB PO SCH (08:43)
[2016-08-05] MEDS: ASPIRIN EC 81 MG TABEC PO SCH (08:43)
[2016-08-05] MEDS: SERTRALINE HCL 50 MG TAB PO SCH (08:43)
[2016-08-05] MEDS ORDERED: ULTR50TA5 PO (10:23)
[2016-08-05] MEDS ORDERED: AUGM500T7 PO (10:44)
[2016-08-05] MEDS ORDERED: METO25TA3 PO (10:44)
[2016-08-05] MEDS ORDERED: AMIO200T PO (10:44)
--- NOTE | 2016-08-05 10:47 | HHI.DCPOC ---
Discharge Care Plan Diagnosis: (1) Altered mental state (2) UTI (urinary tract infection) (3) SVT (supraventricular tachycardia) (4) Hypothyroid (5) HTN (hypertension) (6) Memory deficits (7) General weakness Goals to Promote Your Health * To prevent worsening of your condition and complications * To maintain your health at the optimal level Directions to Meet Your Goals Take your medications as prescribed Follow your dietary instruction Follow activity as directed Keep your appointments as scheduled Take your immunizations and boosters as scheduled If your symptoms worsen call your PCP, if no PCP go to Urgent Care Center or Emergency Room Smoking is Dangerous to Your Health. Avoid second hand smoke Call the 24-hour hour crisis hotline for domestic abuse at Janine Rivera Aug 05, 2016 10:47
--- NOTE | 2016-08-05 11:04 | HHI.DS ---
Discharge Summary Admission Date Aug 01, 2016 at 11:43 Discharge Date: Aug 05, 2016 Admitting Diagnosis altered mental status/UTI/sepsis (1) Altered mental state Diagnosis: Principal (2) SVT (supraventricular tachycardia) Diagnosis: Secondary (3) UTI (urinary tract infection) Diagnosis: Secondary (4) HTN (hypertension) Diagnosis: Secondary (5) Hypothyroid Diagnosis: Secondary (6) S/P mitral valve replacement with bioprosthetic valve Diagnosis: Secondary Consultants Dr. Leonel Mares - Cardiology Brief History Ms. Liao is a pleasant 89 y/o female with HTN, hypothyroidism, NPH with CHANNELER shunt, valvular heart disease with bioprosthetic mitral valve, and mild dementia who presented to the ED on 08/01/16 with AMS. Per the ED notes, the pt wheeled herself down to the office at the [facility] and had initially appeared to have some slurring of the speech and facility thought that maybe she had a left- sided weakness, and they called EMS. When EMS arrived, they stated that they did not have any obvious focal neurological deficits. They state that the patient did appear more tired and had complained of urinary symptoms. In the ED , the patient is lying on the stretcher with eyes closed and refused to follow commands. She would occasionally answer some yes or no questions. She states that she has some dysuria for a few days. No reported nausea/vomiting, chest pain, SOB, palpitations. Her workup in the ED revealed an elevated WBC count with left shift and an abnormal UA, urine culture is pending. Head CT noted stable ventriculomegaly, stable chronic periventricular and subcortical white matter small vessel ischemic changes (right slightly worse than left), but no acute infarct, acute hemorrhage, midline shift or extraaxial fluid collections. Blood cultures were drawn in the ED. Pt was given one dose of Cefepime in the ED. CBC/BMP: 08/03/16 0740 08/03/16 0740 Significant Findings Laboratory Tests Test 08/03/16 08/03/16 08/04/16 05:56 07:40 06:50 Potassium Level 3.2 MEQ/L (3.5-5.1) Estimat Glomerular Filtration 75 ML/MIN (>89) 76 ML/MIN (>89) Rate Random Glucose 151 MG/DL 130 MG/DL (74-106) (74-106) White Blood Count 12.4 TH/MM3 (4.0-11.0) Neutrophils (%) (Auto) 79.8 % (16.0-70.0) Lymphocytes (%) (Auto) 8.2 % (9.0-44.0) Monocytes (%) (Auto) 10.4 % (0.0-8.0) Neutrophils # (Auto) 9.9 TH/MM3 (1.8-7.7) Monocytes # (Auto) 1.3 TH/MM3 (0-0.9) Calcium Level 8.2 MG/DL (8.5-10.1) Troponin I 0.06 NG/ML (0.02-0.05) Imaging Last Impressions Head CT 08/01/16840 Signed Impressions: Service Date/Time: Monday, August 01, 2016 10:12 - CONCLUSION: 1. Stable ventriculomegaly. 2. Stable chronic periventricular and subcortical white matter small vessel ischemic changes (right slightly worse than left). 3. No acute infarct, acute hemorrhage, midline shift or extraaxial fluid collections. Chadwick Zhong MD Chest X-Ray 08/01/16840 Signed Impressions: Service Date/Time: Monday, August 01, 2016 08:57 - CONCLUSION: Minimal parenchymal opacity at the lateral left base. Jeffery Ibarra MD PE at Discharge General: NAD, Awakens easily, oriented to self. Poor historian Chest: CTA Cardiac: Regular, bradycardic Abd: +BS, soft ND/NT Ext: No edema Hospital Course Patient was brought over from her [facility] for altered mental status. Pt is a difficult historian but she did report some dysuria for a few days. Workup in the ED revealed WBC count with left shift and an abnormal UA. Head CT noted stable ventriculomegaly, stable chronic periventricular and subcortical white matter small vessel ischemic changes (right slightly worse than left), but no acute infarct, acute hemorrhage, midline shift or extraaxial fluid collections. Pt was started on IVF and Ceftriaxone at admission for dehydration and possible UTI. Pt had Velásquez placed due to urinary retention. Urine Cx grew out E. coli and Strep Viridans. Pt had some clinical improvement in her mental status. IVF were stopped on 08/04 and abx were changed to Augmentin 500mg Q8H on 08/04 which she will continued for another 5 days after discharge. Pt appears to be at her baseline mental status at this point. Pt is planned for discharge to SNF for rehab. Pt developed sustained SVT around on 08/03. Vagal maneuvers, a Cardizem bolus and Metoprolol failed to break rhythm. Adenosine was pushed at bedside which resulted in brief slowed sinus rhythm, but quickly returned to 150s. Amiodarone was loaded and then Amio gtt started. Pt converted to NSR but was bradycardic in the 40-50's on 08/03. Pt was continued on Metoprolol 50mg po BID. Cardizem was stopped. Pt was converted from Amio gtt to po Amiodarone on 08/04 and her HR and BP have been stable. Pt is planned for discharge to SNF. I Spoke with the pts brother, Tal Liao and her niece, Inés Weber, prior to discharge to explain the pts hospitalization and plan for discharge to SNF. She will need to followup with Dr Mares in 2 weeks Pt will need to followup with her PCP, Dr Guzman, 1 week after discharge from SNF. Pt Condition on Discharge: Stable Discharge Disposition: Discharge to SNF Discharge Instructions DIET: Follow Instructions for: Heart Healthy Diet Activities you can perform: Regular-No Restrictions Follow up Referrals: Cardiology - [address] Leonel Mares PCP Follow-up - [address] Daniela Guzman New Medications: Amiodarone (Amiodarone) 200 Mg Tab 200 MG PO DAILY SVT #31 TAB Amoxicillin-Clavulanate (Augmentin) 500-125 mg Tab 500 MG PO Q8HR uti Days 5 TAB Changed Medications: Metoprolol Tartrate (Metoprolol Tartrate) 25 Mg Tab 50 MG PO BID svt #60 Ref 0 TAB (Changed from: DAILY) Continued Medications: Acetaminophen (Tylenol) 325 Mg Cap 650 MG PO Q6H PRN PAIN SCALE 1 TO [address] (Aspirin 81) 81 Mg Tabdr 81 MG PO DAILY Ref 0 TAB Calcium Carbonate (Antacid) (Tums) 500 Mg Chew 1000 MG CHEW BID PRN HEARTBURN Ref 0 TAB Escitalopram (Escitalopram) 5 Mg Tab 10 MG PO DAILY #30 Ref 0 TAB Levothyroxine (Synthroid) 75 Mcg Tab 75 MCG PO DAILY Thyroid #30 Ref 0 TAB Ondansetron (Zofran) 4 Mg Tab 4 MG PO Q6HR PRN NAUSEA OR VOMITING Ref 0 TAB Saccharomyces Boulardii (Probiotic) 250 Mg Cap 250 MG PO BID Nutritional Supplement Ref 0 CAP Sennosides (Senna) 8.6 Mg Cap 8.6 MG PO HS Constipation Ref 0 CAP Sertraline (Zoloft) 50 Mg Tab 50 MG PO DAILY #30 Ref 0 TAB Tramadol (Ultram) 50 Mg Tab 50 MG PO Q6H PRN PAIN #30 Ref 0 TAB (This prescription has been renewed) Discontinued Medications: Diltiazem HCl Coated Beads (Diltiazem HCl ER) 180 Mg Cap 120 MG PO DAILY Janine Leong Aug 05, 2016 11:04 Tal Ratliff MD Aug 05, 2016 11:30
[2016-08-05 12:27] VITALS: BP 114/53; PULSE 56; RESP 18; TEMP 98.1; O2SAT 95
[2016-08-05 16:33] VITALS: BP 119/59; PULSE 63; RESP 20; TEMP 98.3; O2SAT 95
== END 2016-08-05 17:25 ==
LOC: NEPE 08:32 → NEDA 11:43 → INTOOBSV 11:43 → N04B 21:03
PROVIDERS: ADMIT Hospitalist; ATTEND Hospitalist
DX: N39.0 Urinary tract infection, site not specified (principal); B96.20 Unspecified Escherichia coli [E. coli] as the cause of diseases classified elsewhere; B95.4 Other streptococcus as the cause of diseases classified elsewhere; I47.1 Supraventricular tachycardia; I10 Essential (primary) hypertension; E03.9 Hypothyroidism, unspecified; F03.90 Unspecified dementia, unspecified severity, without behavioral disturbance, psychotic disturbance, mood disturbance, and anxiety; E78.5 Hyperlipidemia, unspecified; I48.92 Unspecified atrial flutter; K21.9 Gastro-esophageal reflux disease without esophagitis; F41.9 Anxiety disorder, unspecified; M19.90 Unspecified osteoarthritis, unspecified site; G43.909 Migraine, unspecified, not intractable, without status migrainosus; Z95.2 Presence of prosthetic heart valve; Z85.3 Personal history of malignant neoplasm of breast; Z90.11 Acquired absence of right breast and nipple; Z85.828 Personal history of other malignant neoplasm of skin; Z96.651 Presence of right artificial knee joint; Z79.82 Long term (current) use of aspirin; Z88.8 Allergy status to other drugs, medicaments and biological substances; Z88.1 Allergy status to other antibiotic agents; Z88.5 Allergy status to narcotic agent; Z98.2 Presence of cerebrospinal fluid drainage device
CPT/HCPCS: 70450; 71010; 76937; 80048; 80053; 80307; 81001; 82140; 83605; 83735; 84443; 84484; 85025; 85610; 85730; 87040; 87077; 87086; 87186; 93005; 93306; 96365; 96366; G0378; G8987-GP; G8988-GP; J0153; J0282; J0692; J0696; J2405; J3480; J7030; J7040; J7042; P9612

== ENCOUNTER 2016-09-26 08:31 | Emergency (ER) | payer MEDICARE ==
[~2016-09-26] VITALS: Ht 160 cm; Wt 59.0 kg
[~2016-09-26 08:31] MED LIST changes: +AMIO200T PO; +AUGM500T7 PO; -DETR4CAP PO; -DILT180C PO; -FURO20TA PO; -LOVA20TA PO; -MELA0.02 PO; -POTA20TA5 PO; +SACC1CAP3 PO; -SENN1TAB17 PO; +SENN8.6C PO; +ULTR50TA5 PO
[2016-09-26 08:36] VITALS: BP 147/75; PULSE 53; RESP 16; TEMP 97.4
--- NOTE | 2016-09-26 09:17 | PD ---
HPI Chief Complaint: Fall Time Seen by Provider: 08:48 Travel History International Travel<30 days: No Contact w/Intl Traveler<30days: No Traveled to known affect area: No History of Present Illness HPI This is an 89-year-old female who [facility] the [facility] after she went to sit down at breakfast and fell to the floor when the chair pulled out from her. The patient reports pain in her right posterior occiput. She denies a neck pain. She initially told the nurse that she was having some shoulder discomfort however my examination she denies any shoulder pain. There are no other complaints the time of my examination. 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 CATARACT EXTRACT) Genitourinary Surgery: Yes (ATTEMPTED REPAIR URINARY INCONT. 2006) Gynecologic Surgery: Yes (TOTAL ABDOMINAL HYSTERECTOMY) Hysterectomy: Yes Insulin Pump: No Joint Replacement: Yes (RIGHT SHOULDER 2010, RIGHT KNEE 2011) Mastectomy: Yes (RIGHT SIDE) Neurologic Surgery: Yes (VENTRAL-PERITONEAL SHUNT) Pacemaker: No Thoracic Surgery: Yes Other Surgery: Yes (see hx) Social History Alcohol Use: No Tobacco Use: No Substance Use: No Allergies-Medications (Allergen,Severity, Reaction): Coded Allergies: Ambien (Verified Allergy, Severe, HALLUCINATIONS, 09/26/16) Celebrex (Verified Allergy, Severe, 09/26/16) PT STATES IS NOT ALLERGIC -- CAN'T AFFORD Compazine (Verified Allergy, Severe, 09/26/16) Cymbalta (Verified Allergy, Severe, Nausea/Vomiting, 09/26/16) not on allergie list from [facility] Dimetapp (Verified Allergy, Severe, 09/26/16) PT UNSURE IF ALLERGIC Erythromycin (Verified Allergy, Severe, 09/26/16) PT UNSURE IF ALLERGIC Naproxen (Verified Allergy, Severe, ALL NSAIDS UPSET STOMACH, 09/26/16) not on allergie list from [facility] Neurontin (Verified Allergy, Severe, UNSTEADY GAIT, 09/26/16) not on allergie list from [facility] Perphenazine (Verified Allergy, Severe, 09/26/16) not on allergie list from [facility] Prednisone (Verified Allergy, Severe, UPSET STOMACH, 09/26/16) PT DOESN'T REMEMBER IF ALLERGIC Trilafon (Verified Allergy, Severe, NAUSEA & VOMITTING, 09/26/16) EXTRA PYRIMADAL SIDE EFFECTS Vioxx (Verified Allergy, Severe, UPSET STOMACH, 09/26/16) DOESN'T REMEMBER ANY PROBLEMS Percocet (Verified Adverse Reaction, Severe, UPSET STOMACH, 09/26/16) PT DOESN'T REMEMBER REACTION Reported Meds & Prescriptions Reported Meds & Active Scripts Active Amiodarone (Amiodarone HCl) 200 Mg Tab 200 Mg PO DAILY Metoprolol Tartrate 25 Mg Tab 50 Mg PO BID Ultram (Tramadol HCl) 50 Mg Tab 50 Mg PO Q6H PRN Reported Senna (Sennosides) 8.6 Mg Cap 8.6 Mg PO HS Zofran (Ondansetron HCl) 4 Mg Tab 4 Mg PO Q6HR PRN Tums (Calcium Carbonate (Antacid)) 500 Mg Chew 1,000 Mg CHEW BID PRN Tylenol (Acetaminophen) 325 Mg Cap 650 Mg PO Q6H PRN Zoloft (Sertraline HCl) 50 Mg Tab 50 Mg PO DAILY Aspirin 81 (Aspirin) 81 Mg Tabdr 81 Mg PO DAILY Synthroid (Levothyroxine Sodium) 75 Mcg Tab 100 Mcg PO DAILY Review of Systems Except as stated in HPI: all other systems reviewed are Neg Eyes: No: Diploplia, Blurred Vision HENT: Positive: Headaches, No: Lightheadedness (right posterior occiput), Neck Pain Cardiovascular: No: Chest Pain or Discomfort, Palpitations Respiratory: No: Cough, Shortness of Breath Gastrointestinal: No: Nausea, Abdominal Pain Musculoskeletal: No: Limited ROM, Weakness, Pain (no pain in her extremities on my examination or history) Skin: No Lumps, No Other (no skin tears) Neurologic: Positive: Headache (right posterior occiput), No: Weakness Physical Exam Narrative GENERAL: Well-nourished, well-developed patient, resting comfortably in bed when I entered the room. SKIN: Focused skin assessment warm/dry. HEAD: Normocephalic. She does have some mild tenderness in her right posterior occiput. No deformity. Questionable small cephalohematoma. EYES: No scleral icterus. No injection or drainage. NECK: Supple, trachea midline. No posterior spinous process tenderness CARDIOVASCULAR: Regular rate without murmurs, gallops, or rubs. RESPIRATORY: Breath sounds equal bilaterally. No accessory muscle use. GASTROINTESTINAL: Abdomen soft, non-tender, nondistended. MUSCULOSKELETAL: No cyanosis, or edema. No pain on examination. The patient had full range of motion on her bilateral shoulders. I do not appreciate any abrasions or hematomas. BACK: Nontender without obvious deformity. NEUROLOGICAL: Awake and alert. Cranial nerves II through XII intact. Motor grossly within normal limits. Five out of 5 muscle strength in all muscle groups. Normal speech. Data Data Last Documented VS Vital Signs Date Time Temp Pulse Resp B/P Pulse Ox O2 Delivery O2 Flow Rate FiO2 09/26/16 08:36 97.4 53 16 147/75 Orders Diet Heart Healthy (09/26/16 Lunch) Ct Brain W/O Iv Contrast(Rout) (09/26/16 10:27) Ct Cerv Spine W/O Contrast (09/26/16 10:27) MDM Medical Decision Making Medical Screen Exam Complete: Yes Emergency Medical Condition: Yes Differential Diagnosis Scalp hematoma versus intracranial hemorrhage versus cervical spine injury versus concussion Narrative Course 89-year-old female who status post mechanical fall at the [facility]. Patient was going to sit down at the dinner table for breakfast when she slipped and fell backwards as the chair slipped away from her. She denies loss of consciousness. She reports pain to the right posterior occiput. CT scan shows no evidence of acute abnormality. CT cervical spine shows no evidence of acute abdomen on the. The patient be discharged back to the [facility]. Diagnosis Primary Impression: Blunt head trauma Additional Impression: status post mechanical fall. Disposition: 01 DISCHARGE HOME Condition: Stable Jordan Guzman MD September 26, 2016 09:17
--- NOTE | 2016-09-26 10:59 | RADRPT ---
EXAM DATE/TIME: 09/26/2016 10:43 [facility] COMPARISON: CT BRAIN W/O CONTRAST, August 01, 2016, 10:12. INDICATIONS : Trauma; fall, pain posterior. RADIATION DOSE: 37.36 CTDIvol (mGy) MEDICAL HISTORY : Hypertension. Cardiovascular disease SURGICAL HISTORY : Hysterectomy. Shunt. ENCOUNTER: Initial ACUITY: 1 day PAIN SCALE: 4/10 LOCATION: cranial TECHNIQUE: Multiple contiguous axial images were obtained of the head. Using automated exposure control and adj ustment of the mA and/or kV according to patient size, radiation dose was kept as low as reasonably a chievable to obtain optimal diagnostic quality images. FINDINGS: CEREBRUM: The ventricles remain prominent in size with a right-sided ventricular shunt in place. This is stable compared to the prior examination. The tip of the shunt is in the left lateral ventricle. There is b ilateral cortical atrophy and chronic white matter changes which are stable.. No evidence of midline shift, mass lesion, hemorrhage or acute infarction. No extra-axial fluid collections are seen. POSTERIOR FOSSA: The cerebellum and brainstem are intact. The 4th ventricle is midline. The cerebellopontine angle i s unremarkable. EXTRACRANIAL: The visualized portion of the orbits is intact. SKULL: The calvaria is intact. No evidence of skull fracture. CONCLUSION: 1. Stable CT brain compared to the prior exam. Specifically no focal or acute intracranial hemorrhage . 2. Stable ventriculomegaly with a right-sided shunt in place. Ej Kang MD on September 26, 2016 at 10:55 Board Certified Radiologist. This report was verified electronically.
--- NOTE | 2016-09-26 11:15 | RADRPT ---
EXAM DATE/TIME: 09/26/2016 10:43 [facility] COMPARISON: CT CERVICAL SPINE W/O CONTRAST, July 18, 2016, 22:18. INDICATIONS : Trauma; fall, pain posterior. RADIATION DOSE: 13.54 CTDIvol (mGy) MEDICAL HISTORY : Hypertension. Cardiovascular disease SURGICAL HISTORY : Hysterectomy. Shunt ENCOUNTER: Initial ACUITY: 1 day PAIN SCALE: 4/10 LOCATION: Bilateral neck TECHNIQUE: Volumetric scanning of the cervical spine was performed. Multiplanar reconstructions in the sagittal, coronal and oblique axial planes were performed. Using automated exposure control and adjustment o f the mA and/or kV according to patient size, radiation dose was kept as low as reasonably achievable to obtain optimal diagnostic quality images. FINDINGS: VERTEBRAE: Normal vertebral body height. No acute bony fracture. There is mild anterior subluxation of C4 over C 5 by 2 mm. There is primary moderate degenerative changes with disc degeneration and disc space narro wing at C5-6 and C6-7. There is mild intra-subluxation of C7 over T1 by approximately 2 mm. C2-C3: The bony spinal canal is normal in size. No evidence of disc bulge or herniation. The neural forami na are bilaterally patent. Right-sided facet arthritis. C3-C4: The bony spinal canal is normal in size. No evidence of disc bulge or herniation. The neural forami na are bilaterally patent. Bilateral facet arthritis. C4-C5: The bony spinal canal is normal in size. No evidence of disc bulge or herniation. The neural forami na are bilaterally patent. Bilateral facet arthritis C5-C6: There is some central bulging disc osteophyte complex. The neural foramina are patent bilaterally.. B ilateral facet arthritis C6-C7: The bony spinal canal is normal in size. No evidence of disc bulge or herniation. The neural forami na are bilaterally patent. Left-sided facet arthritis. C7-T1: The bony spinal canal is normal in size. No evidence of disc bulge or herniation. The neural forami na are bilaterally patent. CONCLUSION: 1. No acute bony fracture. 2. Moderate primarily bony degenerative changes, disc degeneration and disc space narrowing especiall y at C5-6 and C6-7. 3. Mild anterior subluxation of C4 over C5 and C7 over T1 by approximately 2 mm. 4. Facet arthritis at multiple levels. Ej Kang MD on September 26, 2016 at 11:09 Board Certified Radiologist. This report was verified electronically.
[2016-09-26 12:00] VITALS: BP 134/60; PULSE 74; RESP 16; O2SAT 98
== END 2016-09-26 12:29 | disposition home or self-care (01) ==
LOC: NEPC 08:31
DX: S09.90XA Unspecified injury of head, initial encounter (principal); I10 Essential (primary) hypertension; E03.9 Hypothyroidism, unspecified; Z95.2 Presence of prosthetic heart valve; Z79.82 Long term (current) use of aspirin; Z96.611 Presence of right artificial shoulder joint; W07.XXXA Fall from chair, initial encounter; Y93.89 Activity, other specified; Y92.191 Dining room in other specified residential institution as the place of occurrence of the external cause; Y99.9 Unspecified external cause status
CPT/HCPCS: 70450; 72125

== ENCOUNTER 2016-10-22 13:43 | Emergency (ER) | payer MEDICARE ==
[~2016-10-22] VITALS: Ht 162.6 cm; Wt 64.0 kg
[~2016-10-22 13:43] MED LIST changes: -AUGM500T7 PO; -ESCI5TAB PO; -SACC1CAP3 PO
[2016-10-22 13:51] VITALS: BP 114/55; PULSE 54; RESP 19; TEMP 97.4; O2SAT 97
[2016-10-22 14:02] VITALS: BP 114/55; PULSE 54; RESP 19; TEMP 97.9; O2SAT 97
[2016-10-22] MEDS ORDERED: SODIUM CHLORIDE 0.9% FLUSH 10 ML FLUSH IVF PRN (14:15)
[2016-10-22] MEDS ORDERED: RESP: ALBUTEROL 2.5 MG/IPRATROPIUM 0.5 MG NEB (SCH) INH ONE (14:15)
[2016-10-22] MEDS: RESP: ALBUTEROL 2.5 MG/3 ML NEB (SCH) INH (14:17)
--- NOTE | 2016-10-22 14:20 | PD ---
HPI Chief Complaint: Respiratory Symptoms Time Seen by Provider: 14:09 Travel History International Travel<30 days: No Contact w/Intl Traveler<30days: No Traveled to known affect area: No History of Present Illness HPI This is an 89-year-old female with a history of breast cancer, atrial flutter, acute kidney injury, CHF, hypothyroidism, memory deficits, who presents via the longterm with complaints of shortness of breath. The patient denies any pain. She reports shortness of breath times one or 2 days. She states that she also feels wheezing. Patient denies any history of lung disease. When asked what medications she takes, patient stated that she did not think she took any medication. Upon review of her MAR, she is on amiodarone, levothyroxine, metoprolol, Zofran, Ultram, Zoloft, and senna. There are no other complaints time my examination. 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 CATARACT EXTRACT) Genitourinary Surgery: Yes (ATTEMPTED REPAIR URINARY INCONT. 2006) Gynecologic Surgery: Yes (TOTAL ABDOMINAL HYSTERECTOMY) Hysterectomy: Yes Insulin Pump: No Joint Replacement: Yes (RIGHT SHOULDER 2010, RIGHT KNEE 2011) Mastectomy: Yes (RIGHT SIDE) Neurologic Surgery: Yes (VENTRAL-PERITONEAL SHUNT) Pacemaker: No Thoracic Surgery: Yes Other Surgery: Yes (see hx) Family History Family Myocardial Infarction: No Social History Alcohol Use: No Tobacco Use: No Substance Use: No Allergies-Medications (Allergen,Severity, Reaction): Coded Allergies: Ambien (Verified Allergy, Severe, HALLUCINATIONS, 10/22/16) Celebrex (Verified Allergy, Severe, 10/22/16) PT STATES IS NOT ALLERGIC -- CAN'T AFFORD Compazine (Verified Allergy, Severe, 10/22/16) Cymbalta (Verified Allergy, Severe, Nausea/Vomiting, 10/22/16) not on allergie list from [facility] Dimetapp (Verified Allergy, Severe, 10/22/16) PT UNSURE IF ALLERGIC Erythromycin (Verified Allergy, Severe, 10/22/16) PT UNSURE IF ALLERGIC Naproxen (Verified Allergy, Severe, ALL NSAIDS UPSET STOMACH, 10/22/16) not on allergie list from [facility] Neurontin (Verified Allergy, Severe, UNSTEADY GAIT, 10/22/16) not on allergie list from [facility] Perphenazine (Verified Allergy, Severe, 10/22/16) not on allergie list from [facility] Prednisone (Verified Allergy, Severe, UPSET STOMACH, 10/22/16) PT DOESN'T REMEMBER IF ALLERGIC Trilafon (Verified Allergy, Severe, NAUSEA & VOMITTING, 10/22/16) EXTRA PYRIMADAL SIDE EFFECTS Vioxx (Verified Allergy, Severe, UPSET STOMACH, 10/22/16) DOESN'T REMEMBER ANY PROBLEMS Percocet (Verified Adverse Reaction, Severe, UPSET STOMACH, 10/22/16) PT DOESN'T REMEMBER REACTION Reported Meds & Prescriptions Reported Meds & Active Scripts Active Ventolin Hfa 18 GM Inh (Albuterol Sulfate) 90 Mcg/Act Aer 2 Puff INH Q6H PRN Amiodarone (Amiodarone HCl) 200 Mg Tab 200 Mg PO DAILY Metoprolol Tartrate 25 Mg Tab 50 Mg PO BID Ultram (Tramadol HCl) 50 Mg Tab 50 Mg PO Q6H PRN Reported Potassium Chloride ER (Potassium Chloride) 8 Meq Cap 8 Meq PO DAILY Mapap (Acetaminophen) 325 Mg Tab 650 Mg PO Q4-6H PRN Lasix (Furosemide) 20 Mg Tab 20 Mg PO DAILY Senexon (Sennosides) 8.6 Mg Tab Calamine 237 Ml Lotion TID Melatonin 5 Mg Tab 3 Mg PO HS Zofran (Ondansetron HCl) 4 Mg Tab 4 Mg PO Q6HR PRN Tums (Calcium Carbonate (Antacid)) 500 Mg Chew 1,000 Mg CHEW BID PRN Zoloft (Sertraline HCl) 50 Mg Tab 50 Mg PO DAILY Aspirin 81 (Aspirin) 81 Mg Tabdr 81 Mg PO DAILY Synthroid (Levothyroxine Sodium) 75 Mcg Tab 100 Mcg PO DAILY Review of Systems Except as stated in HPI: all other systems reviewed are Neg General / Constitutional: No: Fever, Chills Eyes: No: Blurred Vision, Photophobia HENT: No: Headaches, Neck Pain Cardiovascular: No: Chest Pain or Discomfort, Palpitations Respiratory: Positive: Shortness of Breath, Wheezing, No: Cough Gastrointestinal: No: Nausea, Vomiting, Abdominal Pain Musculoskeletal: No: Weakness, Pain Neurologic: Positive: Weakness, No: Headache (generalized), Sensory Disturbance Physical Exam Narrative GENERAL: Well-developed well-nourished female in no acute respiratory distress. SKIN: Focused skin assessment warm/dry. HEAD: Atraumatic. Normocephalic. EYES: No scleral icterus. No injection or drainage. ENT: No nasal bleeding or discharge. Mucous membranes pink and moist. NECK: Trachea midline. No JVD. Supple. CARDIOVASCULAR: Regular rate and rhythm. No murmur appreciated. RESPIRATORY: No accessory muscle use. Bilateral expiratory wheezes heard in the upper and lower air ways. No Rales appreciated. GASTROINTESTINAL: Abdomen soft, non-tender, nondistended. MUSCULOSKELETAL: No obvious deformities. No clubbing. No cyanosis. No edema. NEUROLOGICAL: Awake and alert. No obvious cranial nerve deficits. Motor grossly within normal limits. Normal speech. PSYCHIATRIC: Appropriate mood and affect; insight and judgment normal. Data Data Last Documented VS Vital Signs Date Time Temp Pulse Resp B/P Pulse Ox O2 Delivery O2 Flow Rate FiO2 10/22/16 16:08 56 19 105/56 97 Room Air 10/22/16 14:28 97.9 Orders Comprehensive Metabolic Panel (10/22/16 14:09) B-Type Natriuretic Peptide (10/22/16 14:09) Ckmb (Isoenzyme) Profile (10/22/16 14:09) Troponin I (10/22/16 14:09) Arterial Blood Gas (Abg) (10/22/16 14:09) Iv Access Insert/Monitor (10/22/16 14:09) Electrocardiogram (10/22/16 14:09) Ecg Monitoring (10/22/16 14:09) Oximetry (10/22/16 14:09) Oxygen Administration (10/22/16 14:09) Chest, Single Ap (10/22/16 14:09) Sodium Chloride 0.9% Flush (Ns Flush) (10/22/16 14:15) Albuterol-Ipratropium Neb (Duoneb Neb) (10/22/16 14:15) Albuterol Neb (Albuterol Neb) (10/22/16 14:15) Albuterol Hfa Inh (Proair Hfa Inh) (10/22/16 17:15) Labs Laboratory Tests Test 10/22/16 10/22/16 14:16 14:30 Blood Gas Puncture Site RT RADIAL Blood Gas Patient Temperature 98.6 Blood Gas HCO3 24 mmol/L Blood Gas Base Excess 0.0 mmol/L Blood Gas Oxygen Saturation 96 % Arterial Blood pH 7.39 Arterial Blood Partial 41 mmHg Pressure CO2 Arterial Blood Partial 117 mmHG Pressure O2 Arterial Blood Oxygen Content 15.0 Vol % Arterial Blood 1.7 % Carboxyhemoglobin Arterial Blood Methemoglobin 0.7 % Blood Gas Hemoglobin 11.0 G/DL Oxygen Delivery Device RA Blood Gas Inspired Oxygen 21 % Sodium Level 139 MEQ/L Potassium Level 4.6 MEQ/L Chloride Level 104 MEQ/L Carbon Dioxide Level 23.9 MEQ/L Anion Gap 11 MEQ/L Blood Urea Nitrogen 22 MG/DL Creatinine 1.13 MG/DL Estimat Glomerular Filtration 45 ML/MIN Rate Random Glucose 90 MG/DL Calcium Level 8.5 MG/DL Total Bilirubin 0.3 MG/DL Aspartate Amino Transf 23 U/L (AST/SGOT) Alanine Aminotransferase 19 U/L (ALT/SGPT) Alkaline Phosphatase 79 U/L Total Creatine Kinase 46 U/L Troponin I LESS THAN 0.02 NG/ML B-Type Natriuretic Peptide 263 PG/ML Total Protein 7.0 GM/DL Albumin 3.0 GM/DL MDM Medical Decision Making Medical Screen Exam Complete: Yes Emergency Medical Condition: Yes Interpretation(s) EKG shows ventricular rate of 53. Her is no acute ST elevation or depression. There are Q waves noted in the leads V1 and V2. Differential Diagnosis Reactive airway disease versus CHF versus pneumonia versus ACS Narrative Course 89-year-old female presents from the longterm with shortness of breath. The patient was noted to have wheezes on exam. Patient has no fever, chills. Chest x-ray shows no acute infiltrate. She was given 3 nebulizer treatments of albuterol, first with Atrovent. On reexamination, the patient has no wheezes. She states she feels much improved. To be discharged back to her longterm. He'll be a prescription for a albuterol MDI. She is instructed to follow up with her primary care physician. Diagnosis Primary Impression: dyspnea, resolved. Additional Instructions: Albuterol inhaler 2-3 times daily. Return if feeling worse. Med/Other Pt SpecificInfo: Prescription(s) given Scripts Albuterol 18 GM Inh (Ventolin Hfa 18 GM Inh)90 Mcg/Act Aer2 Puff INH Q6H PRN ( SHORTNESS OF BREATH) #1 INHALER Ref 0 Prov:Jordan Guzman MD 10/22/16 Disposition: 01 DISCHARGE HOME Condition: Stable Jordan Guzman MD Oct 22, 2016 14:20
[2016-10-22 14:25] LABS: BLOOD GAS CARBOXYHEMOGLOBIN 1.7 % (0-4); BLOOD GAS HCO3 24 mmol/L (22-26); BLOOD GAS METHEMOGLOBIN 0.7 % (0-2); BLOOD GAS O2 HGB SATURATION 96 % (90-100); BLOOD GAS PCO2 41 mmHg (38-42); BLOOD GAS PO2 117 mmHG (61-120); CRITICAL VALUE NO; DRAW SITE RT RADIAL; FIO2 21 %; NUMBER OF ARTERIAL PUNCTURES 1; OXYGEN DEVICE RA; STAT YES; TEMP CORR TO 98.6; ULNAR PULSE PRESENT
[2016-10-22] MEDS ORDERED: SENE8.6T3 (14:27)
[2016-10-22] MEDS ORDERED: MAPA325T PO (14:27)
[2016-10-22] MEDS ORDERED: MELA5TAB15 PO (14:27)
[2016-10-22] MEDS ORDERED: FURO1TAB62 PO (14:27)
[2016-10-22] MEDS ORDERED: POTA8CAP PO (14:27)
[2016-10-22] MEDS ORDERED: CALA237L (14:27)
[2016-10-22 14:28] VITALS: BP 114/55; PULSE 54; RESP 19; TEMP 97.9; O2SAT 97
--- NOTE | 2016-10-22 14:42 | RADRPT ---
EXAM DATE/TIME: 10/22/2016 14:36 [facility] COMPARISON: No previous studies available for comparison. INDICATIONS : Shortness of breath. MEDICAL HISTORY : None. SURGICAL HISTORY : CABG. ENCOUNTER: Initial ACUITY: 1 day PAIN SCORE: Non-responsive. LOCATION: chest FINDINGS: Trace atelectasis seen at both bases. No large effusion. No pneumothorax. Heart size stable, upper li mits of normal. Patient has had previous median sternotomy and aortic valve replacement. Changes of right reverse configuration shoulder arthroplasty again noted. No acute bony abnormality s een. CONCLUSION: Mild bibasilar atelectasis. Jeffery Irvin MD on October 22, 2016 at 14:39 Board Certified Radiologist. This report was verified electronically.
[2016-10-22 15:11] LABS: ALT (GPT) 19 U/L (10-53)
[2016-10-22 15:22] LABS: ALKALINE PHOSPHATASE 79 U/L (45-117); ANION GAP 11 MEQ/L (5-15); AST (GOT) 23 U/L (15-37); BICARBONATE 23.9 MEQ/L (21.0-32.0); BLOOD UREA NITROGEN 22 MG/DL (7-18); CHLORIDE 104 MEQ/L (98-107); GLOMERULAR FILTRATION RATE 45 ML/MIN (>89); POTASSIUM 4.6 MEQ/L (3.5-5.1); SODIUM (NA) 139 MEQ/L (136-145); TOTAL BILIRUBIN ADULT 0.3 MG/DL (0.2-1.0)
[2016-10-22 15:23] LABS: CREATINE KINASE 46 U/L (26-192)
[2016-10-22 16:08] VITALS: BP 105/56; PULSE 56; RESP 19; O2SAT 97
[2016-10-22] MEDS ORDERED: VENTAER INH (17:11)
[2016-10-22] MEDS ORDERED: ALBUTEROL SULFATE 90 MCG/ACT HFA 8 GM INHALER INH ONE (17:15)
[2016-10-22 18:37] VITALS: BP 117/54
--- NOTE | 2016-10-23 09:44 | EKG ---
Date Performed: 10/22/2016 Time Performed: 14:10:03 PTAGE: 89 years EKG: SINUS BRADYCARDIA WITH FIRST DEGREE AV BLOCK WITH OCCASIONAL SUPRAVENTRICULAR PREMATURE COM PLEXES SEPTAL MYOCARDIAL INFARCTION ABNORMAL ECG PREVIOUS TRACING : 08/04/2016 06.27 DOCTOR: Ryder Rowley Interpretating Date/Time 10/23/2016 09:35:35
== END 2016-10-22 18:41 | disposition home or self-care (01) ==
LOC: NEPC 13:43
DX: R06.00 Dyspnea, unspecified (principal); I48.92 Unspecified atrial flutter; I10 Essential (primary) hypertension; R94.31 Abnormal electrocardiogram [ECG] [EKG]
CPT/HCPCS: 36600; 71010; 80053; 82550; 82805; 83880; 84484; 93005; 94640; 94664; 99285; J7613

== ENCOUNTER 2016-10-25 02:29 | Emergency (ER) | payer MEDICARE ==
[2016-10-25] VITALS (7 sets, daily range): BP systolic 119–152; BP diastolic 50–82; PULSE 49–60; RESP 12–16; TEMP 97.8; O2SAT 94–97
[~2016-10-25] VITALS: Ht 162.6 cm; Wt 61.9 kg
[~2016-10-25 02:29] MED LIST changes: -ACET1CAP18 PO; +CALA237L; +FURO1TAB62 PO; +MAPA325T PO; +MELA5TAB15 PO; +POTA8CAP PO; +SENE8.6T3; -SENN8.6C PO; +VENTAER INH
[2016-10-25] MEDS ORDERED: SODIUM CHLORIDE 0.9% FLUSH 10 ML FLUSH IVF PRN (03:00)
[2016-10-25 03:45] LABS: AUTOMATED NEUTROPHIL # 5.2 TH/MM3 (1.8-7.7); BASOPHIL # 0.1 TH/MM3 (0-0.2); EOSINOPHIL # 0.5 TH/MM3 (0-0.4); EOSINOPHIL % 5.6 % (0.0-4.0); HEMATOCRIT 36.2 % (35.0-46.0); HEMO FLAGS DIFF FINAL; LYMPH % 23.5 % (9.0-44.0); MEAN CELL VOLUME 91.1 FL (80.0-100.0); MEAN CORPUSCULAR HEMOGLOBIN 30.8 PG (27.0-34.0); MEAN CORPUSCULAR HGB CONC 33.8 % (32.0-36.0); MONO % 10.2 % (0.0-8.0); NEUT % 59.7 % (16.0-70.0); PLATELET COUNT 223 TH/MM3 (150-450); RED BLOOD COUNT 3.97 MIL/MM3 (4.00-5.30); RED CELL DISTRIBUTION WIDTH 15.6 % (11.6-17.2); WHITE BLOOD COUNT 8.7 TH/MM3 (4.0-11.0)
--- NOTE | 2016-10-25 03:47 | RADHPO ---
EXAM DATE/TIME: 10/25/2016 03:36 [facility] COMPARISON: CHEST SINGLE AP, October 22, 2016, 14:36. INDICATIONS : Short of breath. MEDICAL HISTORY : Cardiovascular disease. SURGICAL HISTORY : CABG. ENCOUNTER: Initial ACUITY: 1 day PAIN SCORE: 7/10 LOCATION: Bilateral chest FINDINGS: Mild right lung base atelectasis and/or infiltrate is seen. There is no appreciable pleural effusion for technique. Heart and mediastinum are unremarkable. There is evidence for prior median sternotomy . CONCLUSION: Mild right lung base atelectasis and/or infiltrate is seen medially. Christina Reynolds MD on October 25, 2016 at 3:43 Board Certified Radiologist. This report was verified electronically.
[2016-10-25 04:06] LABS: CHLORIDE 106 MEQ/L (98-107); POTASSIUM 4.5 MEQ/L (3.5-5.1); SODIUM (NA) 141 MEQ/L (136-145)
[2016-10-25 04:09] LABS: ANION GAP 5 MEQ/L (5-15); BICARBONATE 30.2 MEQ/L (21.0-32.0); BLOOD UREA NITROGEN 19 MG/DL (7-18); MAGNESIUM 2.1 MG/DL (1.5-2.5)
[2016-10-25 04:10] LABS: APTT (PATIENT) 25.4 SEC (24.3-30.1); PROTHROMBIN TIME - PATIENT 11.3 SEC (9.8-11.6)
[2016-10-25 04:12] LABS: GLOMERULAR FILTRATION RATE 52 ML/MIN (>89)
--- NOTE | 2016-10-25 04:14 | PD ---
HPI Chief Complaint: short of breath Time Seen by Provider: 02:58 Travel History International Travel<30 days: No Contact w/Intl Traveler<30days: No Traveled to known affect area: No History of Present Illness HPI 89-year-old female presents to the emergency department by EMS transport from her assisted-living facility. Patient presents because when she stood up this morning to go to the bathroom she noticed that she felt somewhat short of breath. Patient states that this has been happening frequently every time she stands up to go to the bathroom during the night, reportedly she starts to feel short of breath. Patient was recently seen for similar complaint 10/22/16. Patient is supposed to take lasix daily based on her past visit however it is not noted on her current medical reconciliation list. Patient denies any chest pain or shortness of breath at this time. Patient's had no fever no chills. Patient denies any orthopnea. Patient has had no hemoptysis. Patient denies chest pain. Patient presently denies any shortness of breath. 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, cholecystectomy hysterectomy; no tobacco use; nursing notes reviewed Arthritis: Yes Blood Disorders: No Anxiety: Yes Heart Rhythm Problems: No Cancer: Yes (R BREAST CA, BASAL CELL HEAD AND FOREHEAD) Cardiac Catheterization: No Cardiovascular Problems: Yes High Cholesterol: No Chemotherapy: No Congestive Heart Failure: No Diabetes: No Diminished Hearing: No Endocrine: Yes Genitourinary: Yes (INCONTINENCE) Hepatitis: No Hiatal Hernia: No Heparin Induced Thrombocytopen: No Hypertension: Yes Immune Disorder: No Implanted Vascular Access Dvce: Yes Musculoskeletal: Yes (ARTHRITIS) 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 CATARACT EXTRACT) Genitourinary Surgery: Yes (ATTEMPTED REPAIR URINARY INCONT. 2006) Gynecologic Surgery: Yes (TOTAL ABDOMINAL HYSTERECTOMY) Hysterectomy: Yes Insulin Pump: No Joint Replacement: Yes (RIGHT SHOULDER 2010, RIGHT KNEE 2011) Mastectomy: Yes (RIGHT SIDE) Neurologic Surgery: Yes (VENTRAL-PERITONEAL SHUNT) Pacemaker: No Thoracic Surgery: Yes Other Surgery: Yes (see hx) Social History Alcohol Use: No Tobacco Use: No Substance Use: No Allergies-Medications (Allergen,Severity, Reaction): Coded Allergies: Ambien (Verified Allergy, Severe, HALLUCINATIONS, 10/25/16) Celebrex (Verified Allergy, Severe, 10/25/16) PT STATES IS NOT ALLERGIC -- CAN'T AFFORD Compazine (Verified Allergy, Severe, 10/25/16) Cymbalta (Verified Allergy, Severe, Nausea/Vomiting, 10/25/16) not on allergie list from [facility] Dimetapp (Verified Allergy, Severe, 10/25/16) PT UNSURE IF ALLERGIC Erythromycin (Verified Allergy, Severe, 10/25/16) PT UNSURE IF ALLERGIC Naproxen (Verified Allergy, Severe, ALL NSAIDS UPSET STOMACH, 10/25/16) not on allergie list from [facility] Neurontin (Verified Allergy, Severe, UNSTEADY GAIT, 10/25/16) not on allergie list from [facility] Perphenazine (Verified Allergy, Severe, 10/25/16) not on allergie list from [facility] Prednisone (Verified Allergy, Severe, UPSET STOMACH, 10/25/16) PT DOESN'T REMEMBER IF ALLERGIC Trilafon (Verified Allergy, Severe, NAUSEA & VOMITTING, 10/25/16) EXTRA PYRIMADAL SIDE EFFECTS Vioxx (Verified Allergy, Severe, UPSET STOMACH, 10/25/16) DOESN'T REMEMBER ANY PROBLEMS Percocet (Verified Adverse Reaction, Severe, UPSET STOMACH, 10/25/16) PT DOESN'T REMEMBER REACTION Reported Meds & Prescriptions Reported Meds & Active Scripts Active Lasix (Furosemide) 20 Mg Tab 20 Mg PO DAILY Ventolin Hfa 18 GM Inh (Albuterol Sulfate) 90 Mcg/Act Aer 2 Puff INH Q6H PRN Amiodarone (Amiodarone HCl) 200 Mg Tab 200 Mg PO DAILY Metoprolol Tartrate 25 Mg Tab 50 Mg PO BID Ultram (Tramadol HCl) 50 Mg Tab 50 Mg PO Q6H PRN Reported Levothyroxine (Levothyroxine Sodium) 100 Mcg Tab 100 Mcg PO DAILY Mapap (Acetaminophen) 325 Mg Tab 650 Mg PO Q4-6H PRN Senexon (Sennosides) 8.6 Mg Tab Calamine 237 Ml Lotion TID Zofran (Ondansetron HCl) 4 Mg Tab 4 Mg PO Q6HR PRN Tums (Calcium Carbonate (Antacid)) 500 Mg Chew 1,000 Mg CHEW BID PRN Zoloft (Sertraline HCl) 50 Mg Tab 50 Mg PO DAILY Aspirin 81 (Aspirin) 81 Mg Tabdr 81 Mg PO DAILY Review of Systems Except as stated in HPI: all other systems reviewed are Neg General / Constitutional: No: Fever, Chills HENT: No: Congestion Cardiovascular: No: Chest Pain or Discomfort, Syncope, Dyspnea on exertion, Edema Respiratory: Positive: Shortness of Breath, No: Cough, Wheezing (intermittent) , Orthopnea, Hemoptysis, Night Sweats, Pleuritic Pain Gastrointestinal: No: Nausea, Vomiting, Abdominal Pain Genitourinary: No: Dysuria Musculoskeletal: No: Edema, Pain Skin: No Rash Neurologic: No: Weakness Psychiatric: No: Anxiety Hematologic/Lymphatic: No: Easy Bruising Physical Exam Narrative GENERAL: Well-developed well-nourished elderly female in no acute distress no respiratory distress SKIN: Warm and dry. HEAD: Normocephalic. EYES: No scleral icterus. No injection or drainage. NECK: Supple, trachea midline. No JVD or lymphadenopathy. CARDIOVASCULAR: Regular rate and rhythm without murmurs, gallops, or rubs. RESPIRATORY: Breath sounds equal bilaterally no rales or rhonchi or wheezing. No accessory muscle use. GASTROINTESTINAL: Abdomen soft, non-tender, nondistended. MUSCULOSKELETAL: No cyanosis, or edema. Radial and dorsalis pedis pulses 2+ to palpation bilaterally BACK: Nontender without obvious deformity. No CVA tenderness. Data Data Last Documented VS Vital Signs Date Time Temp Pulse Resp B/P Pulse Ox O2 Delivery O2 Flow Rate FiO2 10/25/16 06:57 56 16 152/82 95 Room Air 10/25/16 02:53 97.8 Orders Complete Blood Count With Diff (10/25/16 02:58) Basic Metabolic Panel (Bmp) (10/25/16 02:58) B-Type Natriuretic Peptide (10/25/16 02:58) Act Partial Throm Time (Ptt) (10/25/16 02:58) Prothrombin Time / Inr (Pt) (10/25/16 02:58) Magnesium (Mg) (10/25/16 02:58) Ckmb (Isoenzyme) Profile (10/25/16 02:58) Troponin I (10/25/16 02:58) Urinalysis - C+S If Indicated (10/25/16 02:58) Iv Access Insert/Monitor (10/25/16 02:58) Electrocardiogram (10/25/16 02:58) Ecg Monitoring (10/25/16 02:58) Oximetry (10/25/16 02:58) Oxygen Administration (10/25/16 02:58) Chest, Single Ap (10/25/16 02:58) Sodium Chloride 0.9% Flush (Ns Flush) (10/25/16 03:00) Cath For Specimen (10/25/16 03:49) Furosemide Inj (Lasix Inj) (10/25/16 06:00) Labs Laboratory Tests Test 10/25/16 10/25/16 03:30 04:05 White Blood Count 8.7 TH/MM3 Red Blood Count 3.97 MIL/MM3 Hemoglobin 12.2 GM/DL Hematocrit 36.2 % Mean Corpuscular Volume 91.1 FL Mean Corpuscular Hemoglobin 30.8 PG Mean Corpuscular Hemoglobin 33.8 % Concent Red Cell Distribution Width 15.6 % Platelet Count 223 TH/MM3 Mean Platelet Volume 9.7 FL Neutrophils (%) (Auto) 59.7 % Lymphocytes (%) (Auto) 23.5 % Monocytes (%) (Auto) 10.2 % Eosinophils (%) (Auto) 5.6 % Basophils (%) (Auto) 1.0 % Neutrophils # (Auto) 5.2 TH/MM3 Lymphocytes # (Auto) 2.0 TH/MM3 Monocytes # (Auto) 0.9 TH/MM3 Eosinophils # (Auto) 0.5 TH/MM3 Basophils # (Auto) 0.1 TH/MM3 CBC Comment DIFF FINAL Differential Comment Prothrombin Time 11.3 SEC Prothromb Time International 1.0 RATIO Ratio Activated Partial 25.4 SEC Thromboplast Time Sodium Level 141 MEQ/L Potassium Level 4.5 MEQ/L Chloride Level 106 MEQ/L Carbon Dioxide Level 30.2 MEQ/L Anion Gap 5 MEQ/L Blood Urea Nitrogen 19 MG/DL Creatinine 1.00 MG/DL Estimat Glomerular Filtration 52 ML/MIN Rate Random Glucose 83 MG/DL Calcium Level 9.1 MG/DL Magnesium Level 2.1 MG/DL Total Creatine Kinase 27 U/L Troponin I LESS THAN 0.02 NG/ML B-Type Natriuretic Peptide 514 PG/ML Urine Collection Type CATH Urine Color YELLOW Urine Turbidity CLEAR Urine pH 6.0 Urine Specific [place] 1.008 Urine Protein NEG mg/dL Urine Glucose (UA) NEG mg/dL Urine Ketones NEG mg/dL Urine Occult Blood NEG Urine Nitrite NEG Urine Bilirubin NEG Urine Leukocyte Esterase NEG Urine RBC 0-3 /hpf Urine WBC 3-5 /hpf Urine Squamous Epithelial 0-5 /hpf Cells Urine Amorphous Sediment FEW Urine Mucus OCC /lpf Microscopic Urinalysis Comment CULT NOT INDICATED MDM Medical Decision Making Medical Screen Exam Complete: Yes Emergency Medical Condition: Yes Medical Record Reviewed: Yes Interpretation(s) EKG: Sinus bradycardia with first-degree AV block rate of [address] elevation or injury pattern change noted QS noted septally in V1 V2 Differential Diagnosis Dyspnea, CHF, ACS, anemia, PE, pneumonia, arrhythmia Narrative Course Patient placed on automatic print developer IV access obtained specimens collected and sent for resulting EKG reveals sinus bradycardia with first-degree AV block with no acute ST elevation or injury pattern change noted age-indeterminate QS is identified for septal infarct Patient resting comfortably not requiring supplemental oxygen denying any shortness of breath at this time waiting on lab results Chest x-ray reveals no acute infiltrate or cephalization some basilar atelectasis Cardiac enzymes CK and troponin I are found to be in normal range however BNP is mildly elevated at 500 patient given a dose of Lasix 20 mg IV; is unclear patient has been out of her Lasix for several days which may precipitated this event but patient clinically appears stable numerous saturation at this time is 97% patient is resting supine voicing no complaint of shortness of breath. Patient with good diuresis and remains asymptomatic and without shortness of breath Diagnosis Primary Impression: Dyspnea Qualified Code: R06.00 - Dyspnea, unspecified type Additional Impression: CHF (congestive heart failure) Qualified Code: I50.9 - Chronic congestive heart failure, unspecified congestive heart failure type Referrals: Primary Care Physician call for appointment Patient Instructions: General Instructions Additional Instructions: Resume lasix 20 mg po daily Continue chronic medications as chronically prescribed Follow-up with primary care provider call office to schedule follow-up appointment Return to the emergency department for any concerns or change in condition Med/Other Pt SpecificInfo: Prescription(s) given Scripts Furosemide (Lasix)20 Mg Tab20 Mg PO DAILY #15 TAB Ref 0 Prov:Deanna Vieira MD 10/25/16 Disposition: 01 DISCHARGE HOME ([place]) Condition: Stable Deanna Vieira MD Oct 25, 2016 04:14
[2016-10-25 04:28] LABS: BLOOD, URINE NEG (NEG); GLUCOSE,URINE NEG (NEG); KETONE, URINE NEG (NEG); NITRITE,URINE NEG (NEG)
[2016-10-25 04:28] LABS: CREATINE KINASE 27 U/L (26-192)
[2016-10-25 04:40] LABS: METHOD OF COLLECTION CATH; URINE COLOR YELLOW (YELLW/STRAW)
[2016-10-25 04:41] LABS: MUCUS URINE OCC /lpf (OCC); SQUAMOUS EPITHELIAL CELL URINE 0-5 /hpf (0-5)
[2016-10-25 04:43] LABS: COMMENT (UR) CULT NOT INDICATED; CULTURE IF INDICATED CULT NOT INDICATED; RBC, URINE 0-3 /hpf (0-3)
[2016-10-25] MEDS ORDERED: LEVO100T5 PO (05:27)
[2016-10-25] MEDS ORDERED: FUROSEMIDE 20 MG/2 ML VIAL IV PUSH ONE (06:00)
[2016-10-25] MEDS ORDERED: FURO1TAB62 PO (07:36)
--- NOTE | 2016-10-25 10:34 | EKG ---
Date Performed: 10/25/2016 Time Performed: 03:22:47 PTAGE: 89 years EKG: BASELINE ARTIFACT PRESENT. Sinus bradycardia with first degree AV block LOW QRS VOLTAGE IN PRECORDIAL LEADS SEPTAL MYOCARDIAL INFARCTION Nonspecific ST segment changes ABNORMAL ECG NO SIGNIFIC ANT CHANGE FROM PRIOR ELECTROCARDIOGRAM. PREVIOUS TRACING : 10/22/2016 14.10 DOCTOR: Ronn Herrera Interpretating Date/Time 10/25/2016 10:33:15
== END 2016-10-25 10:19 | disposition home or self-care (01) ==
LOC: PHED 02:29 → PHEFT 10:19
DX: R06.02 Shortness of breath (principal); I50.9 Heart failure, unspecified; I10 Essential (primary) hypertension; E03.9 Hypothyroidism, unspecified; Z79.82 Long term (current) use of aspirin; Z79.899 Other long term (current) drug therapy
CPT/HCPCS: 71010; 80048; 81001; 82550; 83735; 83880; 84484; 85025; 85610; 85730; 93005; 96374; 99285; J1940; P9612